=== PATIENT | female | born 1965 | race Caucasian/White ===

== ENCOUNTER → 2017-12-08 07:58 | Outpatient (CLI) | payer OTHER, SELFPAY ==
[2017-12-08 09:20] LABS: Hematocrit 31.9 % (36-46); Hemoglobin 9.9 g/dL (12.0-16.0); Mean Corpuscular HGB Conc 31.1 % (30-36); Mean Corpuscular Hemoglobin 23.9 PG (26-34); Mean Corpuscular Volume 76.9 fL (80-100); Platelet Count 152 X10^3/uL (150-400); Red Blood Cell Count 4.15 X10^6/uL (4.0-5.2); Red Cell Distribution Width 20.5 % (11.6-14.8); White Blood Cell Count 4.6 X10^3/uL (4.5-11.0)
[2017-12-08 09:28] LABS: INR 2.5 (0.9-1.3); Prothrombin Time 26.6 SECONDS (10.1-12.7)
[2017-12-08 09:29] LABS: Add Manual Diff / Slide Review YES
[2017-12-08 09:46] LABS: Anisocytosis 1+; Hypochromasia 3+; Poikilocytosis 1+; Target Cells 2+
== END ==
PROVIDERS: PCP Family Medicine; Visit Provider Pathology Hematology
DX: D45 Polycythemia vera (principal)
CPT/HCPCS: 36415; 85025; 85610

== ENCOUNTER → 2017-12-30 08:52 | Outpatient (CLI) | payer OTHER, SELFPAY ==
[2017-12-30 10:24] LABS: INR 2.7 (0.9-1.3); Prothrombin Time 28.7 SECONDS (10.1-12.7)
[2017-12-30 10:28] LABS: Hematocrit 33.1 % (36-46); Hemoglobin 10.3 g/dL (12.0-16.0); Mean Corpuscular HGB Conc 31.1 % (30-36); Mean Corpuscular Hemoglobin 24.3 PG (26-34); Platelet Count 218 X10^3/uL (150-400); Red Blood Cell Count 4.25 X10^6/uL (4.0-5.2); Red Cell Distribution Width 20.7 % (11.6-14.8); White Blood Cell Count 4.9 X10^3/uL (4.5-11.0)
[2017-12-30 10:30] LABS: Add Manual Diff / Slide Review YES
[2017-12-30 10:31] LABS: HEMOLYSIS < 15 (0-50)
[2017-12-30 10:33] LABS: Alanine Aminotransferase 102 IU/L (9-52); Albumin 4.2 g/dL (3.5-5.0); Albumin Globulin Ratio 1.8 (1.0-2.8); Alkaline Phosphatase 166 U/L (38-126); Aspartate Aminotransferase 82 IU/L (14-36); Bilirubin Unconjugated 0.8 mg/dL (0.0-1.1); Globulin 2.4 g/dL (1.7-4.1); HEMOLYSIS < 15 (0-50); Total Protein 6.6 g/dL (6.3-8.2)
[2017-12-30 10:43] LABS: Total Iron Binding Capacity 427 ug/dL (265-497); Transferrin 333 mg/dL (206-381)
[2017-12-30 10:45] LABS: Iron < 10 ug/dL (37-170); Percent Iron Saturation 2 % (15-50)
[2017-12-30 11:07] LABS: Ferritin 4.8 ng/mL (11.1-264)
[2017-12-30 11:46] LABS: Hypochromasia 2+; Neutrophils Absolute Manual 2793 /uL (3000-5900); Total Cells Counted 100
[2017-12-30 11:47] LABS: Acanthocytes 2+
[2017-12-30 11:48] LABS: Target Cells 3+
== END ==
PROVIDERS: PCP Family Medicine; Visit Provider Internal Medicine Gastroenterology
DX: Z79.01 Long term (current) use of anticoagulants (principal); D45 Polycythemia vera; K76.6 Portal hypertension; I81 Portal vein thrombosis; Z90.81 Acquired absence of spleen
CPT/HCPCS: 36415; 80076; 82728; 83540; 83550; 85025; 85610

== ENCOUNTER → 2018-02-09 07:40 | Outpatient (CLI) | payer OTHER, SELFPAY ==
[2018-02-09 08:32] LABS: HEMOLYSIS < 15 (0-50); Iron 20 ug/dL (37-170)
[2018-02-09 08:33] LABS: Alanine Aminotransferase 94 IU/L (9-52); Albumin 4.2 g/dL (3.5-5.0); Albumin Globulin Ratio 2.1 (1.0-2.8); Alkaline Phosphatase 148 U/L (38-126); Aspartate Aminotransferase 66 IU/L (14-36); Bilirubin Total 0.9 mg/dL (0.2-1.3); Bilirubin Unconjugated 0.8 mg/dL (0.0-1.1); HEMOLYSIS < 15 (0-50); Lactate Dehydrogenase 606 U/L (313-618); Total Protein 6.2 g/dL (6.3-8.2); Uric Acid 2.8 mg/dL (2.5-6.2)
[2018-02-09 08:38] LABS: Hematocrit 33.4 % (36-46); Hemoglobin 10.4 g/dL (12.0-16.0); Mean Corpuscular HGB Conc 31.3 % (30-36); Mean Corpuscular Hemoglobin 24.4 PG (26-34); Mean Corpuscular Volume 77.9 fL (80-100); Platelet Count 340 X10^3/uL (150-400); Red Blood Cell Count 4.29 X10^6/uL (4.0-5.2); Red Cell Distribution Width 19.2 % (11.6-14.8); White Blood Cell Count 4.8 X10^3/uL (4.5-11.0)
[2018-02-09 08:45] LABS: Percent Iron Saturation 5 % (15-50); Total Iron Binding Capacity 396 ug/dL (265-497); Transferrin 318 mg/dL (206-381)
[2018-02-09 08:59] LABS: Add Manual Diff / Slide Review YES
[2018-02-09 09:08] LABS: Ferritin 5.2 ng/mL (11.1-264)
[2018-02-09 11:28] LABS: Neutrophils Absolute Manual 3360 /uL (3000-5900); Total Cells Counted 100
[2018-02-09 11:30] LABS: Hypochromasia 3+; Target Cells 2+
[2018-02-09 11:35] LABS: Anisocytosis 2+
[2018-02-09 11:37] LABS: Poikilocytosis 2+
[2018-02-09 11:47] LABS: INR 2.7 (0.9-1.3); Prothrombin Time 30.2 SECONDS (10.1-12.7)
== END ==
PROVIDERS: PCP Family Medicine; Visit Provider Pathology Hematology
DX: D45 Polycythemia vera (principal); Z79.01 Long term (current) use of anticoagulants
CPT/HCPCS: 36415; 80076; 82728; 83540; 83550; 83615; 84550; 85025; 85610

== ENCOUNTER → 2018-03-08 14:54 | Outpatient (CLI) | payer OTHER, SELFPAY ==
[2018-03-08 15:24] LABS: Add Manual Diff / Slide Review NO; Basophils Percent Auto 0.9 % (0-2); Eosinophils Percent Auto 7.8 % (2-4); Hematocrit 35.4 % (36-46); Hemoglobin 11.2 g/dL (12.0-16.0); Lymphocytes Percent Auto 11.3 % (25-40); Mean Corpuscular HGB Conc 31.6 % (30-36); Mean Corpuscular Hemoglobin 24.3 PG (26-34); Mean Corpuscular Volume 76.9 fL (80-100); Monocytes Percent Auto 8.5 % (3-14); Neutrophils Absolute Auto 5300 /uL (3000-5900); Neutrophils Percent Auto 71.5 % (50-75); Platelet Count 302 X10^3/uL (150-400); Red Cell Distribution Width 19.3 % (11.6-14.8); White Blood Cell Count 7.4 X10^3/uL (4.5-11.0)
[2018-03-08 15:25] LABS: INR 2.5 (0.9-1.3)
== END ==
PROVIDERS: PCP Family Medicine; Visit Provider Pharmacist Pharmacotherapy
DX: Z79.01 Long term (current) use of anticoagulants (principal)
CPT/HCPCS: 36415; 85025; 85610

== ENCOUNTER → 2018-04-18 13:52 | Outpatient (CLI) | payer OTHER, SELFPAY ==
[2018-04-18 14:29] LABS: Hematocrit 35.1 % (36-46); Hemoglobin 11.4 g/dL (12.0-16.0); Mean Corpuscular HGB Conc 32.3 % (30-36); Mean Corpuscular Hemoglobin 25.2 PG (26-34); Mean Corpuscular Volume 77.9 fL (80-100); Platelet Count 551 X10^3/uL (150-400); Red Blood Cell Count 4.51 X10^6/uL (4.0-5.2); Red Cell Distribution Width 20.5 % (11.6-14.8); White Blood Cell Count 7.7 X10^3/uL (4.5-11.0)
[2018-04-18 14:51] LABS: INR 2.5 (0.9-1.3); Prothrombin Time 27.2 SECONDS (10.1-12.7)
[2018-04-18 15:04] LABS: Estimated Glomerular Filt Rate > 60.0 mL/min (>60)
[2018-04-18 16:41] LABS: Hypochromasia 2+; Target Cells 2+
[2018-04-18 16:42] LABS: Anisocytosis 2+; Poikilocytosis 1+
== END ==
PROVIDERS: PCP Family Medicine; Visit Provider Pharmacist Pharmacotherapy
DX: Z79.01 Long term (current) use of anticoagulants (principal)
CPT/HCPCS: 36415; 82565; 85027; 85610

== ENCOUNTER → 2018-05-04 15:23 | Outpatient (CLI) | payer OTHER, SELFPAY ==
[2018-05-04 17:09] LABS: Prothrombin Time 33.2 SECONDS (10.1-12.7)
[2018-05-04 17:20] LABS: Alanine Aminotransferase 77 IU/L (9-52); Albumin 4.4 g/dL (3.5-5.0); Alkaline Phosphatase 148 U/L (38-126); Aspartate Aminotransferase 60 IU/L (14-36); Bilirubin Total 0.9 mg/dL (0.2-1.3); Blood Urea Nitrogen 14 mg/dL (7-17); Calcium 9.3 mg/dL (8.4-10.2); Carbon Dioxide 29 mmol/L (22-32); Chloride 103 mmol/L (98-107); Estimated Glomerular Filt Rate > 60.0 mL/min (>60); Globulin 2.2 g/dL (1.7-4.1); Glucose 83 mg/dL (70-100); HEMOLYSIS < 15 (0-50); Potassium 4.3 mmol/L (3.4-5.1); Sodium 143 mmol/L (137-145); Total Protein 6.6 g/dL (6.3-8.2)
[2018-05-04 17:51] LABS: Hematocrit 36.3 % (36-46); Hemoglobin 11.1 g/dL (12.0-16.0); Mean Corpuscular HGB Conc 30.6 % (30-36); Mean Corpuscular Hemoglobin 23.9 PG (26-34); Mean Corpuscular Volume 78.1 fL (80-100); Platelet Count 303 X10^3/uL (150-400); Red Blood Cell Count 4.65 X10^6/uL (4.0-5.2); Red Cell Distribution Width 20.3 % (11.6-14.8); White Blood Cell Count 6.7 X10^3/uL (4.5-11.0)
[2018-05-04 17:52] LABS: Add Manual Diff / Slide Review YES
[2018-05-04 18:21] LABS: Neutrophils Absolute Manual 4824 /uL (3000-5900); Total Cells Counted 100
[2018-05-04 18:22] LABS: Platelet Morphology Comment NOTE; RBC Morphology See; Schistocytes 1+; Target Cells 2+
[2018-05-04 18:23] LABS: Spherocytes 1+
== END ==
PROVIDERS: PCP Family Medicine; Visit Provider Internal Medicine Gastroenterology
DX: R79.89 Other specified abnormal findings of blood chemistry (principal); I81 Portal vein thrombosis; Z90.81 Acquired absence of spleen; D45 Polycythemia vera
CPT/HCPCS: 36415; 80053; 85025; 85610

== ENCOUNTER → 2018-06-07 12:30 | Outpatient (CLI) | payer OTHER, SELFPAY ==
--- NOTE | 2018-06-07 12:33 | DI.MG.S_ITS ---
BILATERAL DIGITAL SCREENING MAMMOGRAM 3D/2D WITH CAD: 06/07/2018 CLINICAL: Routine screening. Family history of breast cancer. Comparison is made to exams dated: 11/20/2015 mammogram, 07/13/2013 mammogram, and 05/12/2012 mammogram - [facility]. The tissue of both breasts is heterogeneously dense. This may lower the sensitivity of mammography. Current study was also evaluated with a Computer Aided Detection (CAD) system. No significant masses, calcifications, or other findings are seen in either breast. There has been no significant interval change. IMPRESSION: NEGATIVE There is no mammographic evidence of malignancy. A 1 year screening mammogram is recommended. This exam was interpreted at Station ID: [id number]. NOTE: For mammograms, a report in lay terms will be sent to the patient. Approximately 15% of breast malignancies will not be visualized mammographically. In the management of a palpable breast mass, a negative mammogram must not discourage biopsy of a clinically suspicious lesion. Electronically Signed By: Peterson martinez/sharmila:06/07/2018 14:44:20 copy to: Melanie Rao copy to: Melo Hall letter sent: Normal Exam ACR BI-RADS Category 1: Negative 3341F
[2018-06-07 13:18] LABS: Add Manual Diff / Slide Review NO; Basophils Percent Auto 3.1 % (0-2); Eosinophils Percent Auto 4.2 % (2-4); Hematocrit 37.1 % (36-46); Hemoglobin 11.6 g/dL (12.0-16.0); Lymphocytes Percent Auto 21.4 % (25-40); Mean Corpuscular HGB Conc 31.3 % (30-36); Mean Corpuscular Hemoglobin 24.8 PG (26-34); Mean Corpuscular Volume 79.2 fL (80-100); Monocytes Percent Auto 6.6 % (3-14); Neutrophils Absolute Auto 4500 /uL (3000-5900); Neutrophils Percent Auto 64.7 % (50-75); Red Blood Cell Count 4.68 X10^6/uL (4.0-5.2); Red Cell Distribution Width 20.1 % (11.6-14.8)
[2018-06-07 13:38] LABS: Platelet Count 500 X10^3/uL (150-400)
[2018-06-07 13:39] LABS: Anisocytosis 2+; Poikilocytosis 2+
[2018-06-07 13:40] LABS: Target Cells 1+
[2018-06-07 14:00] LABS: INR 3.7 (0.9-1.3); Prothrombin Time 40.8 SECONDS (10.1-12.7)
[2018-06-07 14:09] LABS: Alanine Aminotransferase 90 IU/L (9-52); Albumin 4.6 g/dL (3.5-5.0); Albumin Globulin Ratio 1.8 (1.0-2.8); Alkaline Phosphatase 133 U/L (38-126); Aspartate Aminotransferase 69 IU/L (14-36); Bilirubin Total 0.9 mg/dL (0.2-1.3); Blood Urea Nitrogen 14 mg/dL (7-17); Calcium 9.3 mg/dL (8.4-10.2); Carbon Dioxide 30 mmol/L (22-32); Chloride 104 mmol/L (98-107); Estimated Glomerular Filt Rate > 60.0 mL/min (>60); Globulin 2.6 g/dL (1.7-4.1); Glucose 91 mg/dL (70-100); HEMOLYSIS < 15 (0-50); Potassium 3.9 mmol/L (3.4-5.1); Sodium 146 mmol/L (137-145); Total Protein 7.2 g/dL (6.3-8.2)
== END ==
PROVIDERS: PCP Family Medicine; Visit Provider Family Medicine
DX: Z12.31 Encounter for screening mammogram for malignant neoplasm of breast (principal); Z80.3 Family history of malignant neoplasm of breast; D45 Polycythemia vera; Z79.01 Long term (current) use of anticoagulants
CPT/HCPCS: 36415; 77063; 77067; 80053; 85025; 85610

== ENCOUNTER → 2018-06-21 06:58 | Outpatient (CLI) | payer OTHER, SELFPAY ==
[2018-06-21 09:29] LABS: Hematocrit 38.2 % (36-46); Hemoglobin 11.9 g/dL (12.0-16.0); Mean Corpuscular HGB Conc 31.2 % (30-36); Mean Corpuscular Hemoglobin 25.1 PG (26-34); Mean Corpuscular Volume 80.5 fL (80-100); Platelet Count 427 X10^3/uL (150-400); Red Blood Cell Count 4.75 X10^6/uL (4.0-5.2); White Blood Cell Count 5.7 X10^3/uL (4.5-11.0)
[2018-06-21 09:30] LABS: Add Manual Diff / Slide Review YES
[2018-06-21 09:45] LABS: INR 2.4 (0.9-1.3); Prothrombin Time 28.3 SECONDS (10.1-12.7)
[2018-06-21 10:04] LABS: Alanine Aminotransferase 86 IU/L (9-52); Albumin 4.5 g/dL (3.5-5.0); Albumin Globulin Ratio 1.7 (1.0-2.8); Alkaline Phosphatase 144 U/L (38-126); Aspartate Aminotransferase 78 IU/L (14-36); Bilirubin Total 1.2 mg/dL (0.2-1.3); Bilirubin Unconjugated 0.9 mg/dL (0.0-1.1); Blood Urea Nitrogen 13 mg/dL (7-17); Calcium 9.4 mg/dL (8.4-10.2); Carbon Dioxide 27 mmol/L (22-32); Chloride 105 mmol/L (98-107); Cholesterol 150 mg/dL (140-199); Estimated Glomerular Filt Rate > 60.0 mL/min (>60); Globulin 2.6 g/dL (1.7-4.1); Glucose 73 mg/dL (70-100); HDL Cholesterol 93 mg/dL (40-60); HEMOLYSIS < 15 (0-50); LDL Cholesterol Calculated 50 mg/dL (<100); Potassium 4.4 mmol/L (3.4-5.1); Sodium 145 mmol/L (137-145); Total Protein 7.1 g/dL (6.3-8.2); Triglycerides 33 mg/dL (35-150)
[2018-06-21 10:28] LABS: TSH w/ Reflex to FT4 2.21 uIU/mL (0.47-4.68)
[2018-06-21 10:49] LABS: Neutrophils Absolute Manual 3591 /uL (3000-5900); Total Cells Counted 100
[2018-06-21 10:51] LABS: Anisocytosis 3+; Hypochromasia 2+; Target Cells 1+
[2018-06-21 10:52] LABS: Poikilocytosis 1+
== END ==
PROVIDERS: Family Provider Family Medicine; PCP Family Medicine; Visit Provider Internal Medicine Gastroenterology
DX: K76.6 Portal hypertension (principal); I81 Portal vein thrombosis; Z90.81 Acquired absence of spleen; D45 Polycythemia vera; Z00.00 Encounter for general adult medical examination without abnormal findings; R14.0 Abdominal distension (gaseous); M22.2X9 Patellofemoral disorders, unspecified knee
CPT/HCPCS: 36415; 80053; 80061; 80076; 84443; 85025; 85610

== ENCOUNTER → 2018-07-20 14:53 | Outpatient (CLI) | payer OTHER, SELFPAY ==
[2018-07-20 15:38] LABS: Hematocrit 37.4 % (36-46); Hemoglobin 11.8 g/dL (12.0-16.0); Mean Corpuscular HGB Conc 31.5 % (30-36); Mean Corpuscular Hemoglobin 25.4 PG (26-34); Mean Corpuscular Volume 80.7 fL (80-100); Platelet Count 286 X10^3/uL (150-400); Red Blood Cell Count 4.63 X10^6/uL (4.0-5.2)
[2018-07-20 15:40] LABS: Add Manual Diff / Slide Review YES
[2018-07-20 15:54] LABS: Neutrophils Absolute Manual 4970 /uL (3000-5900); Total Cells Counted 100
[2018-07-20 15:55] LABS: Basophilic Stippling 1+; Burr Cells 2+; Rouleaux 1+; Target Cells 1+
[2018-07-20 15:56] LABS: Anisocytosis 2+; Hypochromasia 2+; Poikilocytosis 2+
== END ==
PROVIDERS: PCP Family Medicine; Visit Provider Pathology Hematology
DX: D45 Polycythemia vera (principal)
CPT/HCPCS: 36415; 85025

== ENCOUNTER → 2018-07-26 08:55 | Outpatient (CLI) | payer OTHER, SELFPAY ==
[2018-07-26 10:07] LABS: INR 3.3 (0.9-1.3); Prothrombin Time 38.9 SECONDS (10.1-12.7)
== END ==
PROVIDERS: PCP Family Medicine; Visit Provider Pharmacist Pharmacotherapy
DX: Z79.01 Long term (current) use of anticoagulants (principal)
CPT/HCPCS: 36415; 85610

== ENCOUNTER → 2018-08-22 15:16 | Outpatient (CLI) | payer OTHER, SELFPAY ==
[2018-08-22 16:01] LABS: Add Manual Diff / Slide Review NO; Basophils Absolute Auto 100 /uL (0-100); Basophils Percent Auto 2.2 % (0-2); Eosinophils Absolute Auto 200 /uL (0-450); Eosinophils Percent Auto 3.7 % (2-4); Hematocrit 38.6 % (36-46); Hemoglobin 12.3 g/dL (12.0-16.0); INR 4.4 (0.9-1.3); Lymphocytes Absolute Auto 1100 /uL (1100-4500); Lymphocytes Percent Auto 19.3 % (25-40); Mean Corpuscular HGB Conc 31.8 % (30-36); Mean Corpuscular Hemoglobin 26.3 PG (26-34); Mean Corpuscular Volume 82.7 fL (80-100); Monocytes Absolute Auto 500 /uL (0-900); Monocytes Percent Auto 9.3 % (3-14); Neutrophils Absolute Auto 3800 /uL (1500-7000); Neutrophils Percent Auto 65.5 % (50-75); Platelet Count 514 X10^3/uL (150-400); Red Blood Cell Count 4.67 X10^6/uL (4.0-5.2); Red Cell Distribution Width 21.6 % (11.6-14.8); White Blood Cell Count 5.8 X10^3/uL (4.5-11.0)
[2018-08-22 16:48] LABS: Anisocytosis 2+; Hypochromasia 1+; Poikilocytosis 2+; Target Cells 2+
[2018-08-22 16:49] LABS: Platelet Estimate Increased on smear
== END ==
PROVIDERS: PCP Family Medicine; Visit Provider Pharmacist Pharmacotherapy
DX: Z79.01 Long term (current) use of anticoagulants (principal)
CPT/HCPCS: 36415; 85025; 85610

== ENCOUNTER → 2018-09-01 14:22 | Outpatient (CLI) | payer OTHER, SELFPAY ==
--- NOTE | 2018-09-01 14:30 | DI.RAD.S_ITS ---
PROCEDURE: XR FINGER LT MIN 2V INDICATIONS: LEFT 5TH FINGER PAIN TECHNIQUE: AP hand, 2 views of the left finger(s) acquired. COMPARISON: None. FINDINGS: Bones: No fractures or dislocations. No suspicious bony lesions. First CMC and triscaphe joint degeneration. Left little finger DIP joint joint space narrowing Soft tissues: No suspicious soft tissue calcifications. IMPRESSION: No fractures. Diffuse left hand osteoarthritis including at the left little finger DIP joint Dictated by: Regino Coates M.D. on 09/01/2018 at 15:08 Approved by: Regino Coates M.D. on 09/01/2018 at 15:10
[2018-09-01 14:54] LABS: Prothrombin Time 34.8 SECONDS (10.1-12.7)
== END ==
PROVIDERS: PCP Family Medicine; Visit Provider Pharmacist Pharmacotherapy
DX: M79.645 Pain in left finger(s) (principal); Z79.01 Long term (current) use of anticoagulants
CPT/HCPCS: 36415; 73140; 85610

== ENCOUNTER → 2018-09-28 08:13 | Outpatient (CLI) | payer OTHER, SELFPAY ==
[2018-09-28 08:50] LABS: Add Manual Diff / Slide Review NO; Basophils Absolute Auto 100 /uL (0-100); Basophils Percent Auto 2.7 % (0-2); Eosinophils Absolute Auto 200 /uL (0-450); Eosinophils Percent Auto 4.7 % (2-4); Hemoglobin 12.9 g/dL (12.0-16.0); Lymphocytes Absolute Auto 800 /uL (1100-4500); Lymphocytes Percent Auto 21.2 % (25-40); Mean Corpuscular HGB Conc 32.4 % (30-36); Mean Corpuscular Hemoglobin 27.9 PG (26-34); Mean Corpuscular Volume 86.1 fL (80-100); Monocytes Absolute Auto 300 /uL (0-900); Monocytes Percent Auto 8.2 % (3-14); Neutrophils Absolute Auto 2500 /uL (1500-7000); Neutrophils Percent Auto 63.2 % (50-75); Platelet Count 299 X10^3/uL (150-400); Red Blood Cell Count 4.64 X10^6/uL (4.0-5.2); Red Cell Distribution Width 23.3 % (11.6-14.8)
[2018-09-28 08:53] LABS: INR 3.1 (0.9-1.3); Prothrombin Time 36.7 SECONDS (10.1-12.7)
[2018-09-28 09:21] LABS: Poikilocytosis 1+
[2018-09-28 09:22] LABS: Anisocytosis 2+; Target Cells 2+
[2018-09-28 09:28] LABS: Alanine Aminotransferase 81 IU/L (9-52); Albumin 4.4 g/dL (3.5-5.0); Albumin Globulin Ratio 1.8 (1.0-2.8); Alkaline Phosphatase 143 U/L (38-126); Aspartate Aminotransferase 60 IU/L (14-36); Blood Urea Nitrogen 12 mg/dL (7-17); Calcium 9.4 mg/dL (8.4-10.2); Carbon Dioxide 25 mmol/L (22-32); Chloride 104 mmol/L (98-107); Estimated Glomerular Filt Rate > 60.0 mL/min (>60); Globulin 2.4 g/dL (1.7-4.1); Glucose 107 mg/dL (70-100); HEMOLYSIS < 15 (0-50); Potassium 4.1 mmol/L (3.4-5.1); Sodium 140 mmol/L (137-145); Total Protein 6.8 g/dL (6.3-8.2)
== END ==
PROVIDERS: Family Provider Family Medicine; PCP Family Medicine; Visit Provider Pathology Hematology
DX: D45 Polycythemia vera (principal); Z79.01 Long term (current) use of anticoagulants
CPT/HCPCS: 36415; 80053; 85025; 85610

== ENCOUNTER → 2018-11-01 11:31 | Outpatient (CLI) | payer OTHER, SELFPAY ==
[2018-11-01 12:34] LABS: INR 1.8 (0.9-1.3); Prothrombin Time 21.6 SECONDS (10.1-12.7)
== END ==
PROVIDERS: Family Provider Family Medicine; PCP Family Medicine; Visit Provider Pharmacist
DX: Z79.01 Long term (current) use of anticoagulants (principal)
CPT/HCPCS: 36415; 85610

== ENCOUNTER → 2018-11-17 08:14 | Outpatient (CLI) | payer OTHER, SELFPAY ==
[2018-11-17 17:13] LABS: INR 2.2 (0.9-1.3); Prothrombin Time 26.2 SECONDS (10.1-12.7)
== END ==
PROVIDERS: Family Provider Family Medicine; PCP Family Medicine; Visit Provider Pharmacist
DX: Z79.01 Long term (current) use of anticoagulants (principal)
CPT/HCPCS: 36415; 85610

== ENCOUNTER → 2018-12-19 07:57 | Outpatient (CLI) | payer OTHER, SELFPAY ==
[2018-12-19 09:00] LABS: INR 2.8 (0.9-1.3); Prothrombin Time 32.6 SECONDS (10.1-12.7)
[2018-12-19 09:02] LABS: Basophils Absolute Auto 100 /uL (0-100); Basophils Percent Auto 1.7 % (0-2); Eosinophils Absolute Auto 100 /uL (0-450); Hematocrit 41.6 % (36-46); Hemoglobin 13.5 g/dL (12.0-16.0); Lymphocytes Absolute Auto 1000 /uL (1100-4500); Lymphocytes Percent Auto 22.3 % (25-40); Mean Corpuscular HGB Conc 32.4 % (30-36); Mean Corpuscular Hemoglobin 30.5 PG (26-34); Monocytes Absolute Auto 200 /uL (0-900); Monocytes Percent Auto 4.8 % (3-14); Neutrophils Absolute Auto 3100 /uL (1500-7000); Neutrophils Percent Auto 68.2 % (50-75); Platelet Count 503 X10^3/uL (150-400); Red Blood Cell Count 4.43 X10^6/uL (4.0-5.2); Red Cell Distribution Width 18.3 % (11.6-14.8); White Blood Cell Count 4.5 X10^3/uL (4.5-11.0)
[2018-12-19 09:03] LABS: Add Manual Diff / Slide Review SLIDE REVIEW
[2018-12-19 09:08] LABS: Alanine Aminotransferase 62 IU/L (9-52); Albumin 4.4 g/dL (3.5-5.0); Albumin Globulin Ratio 1.7 (1.0-2.8); Alkaline Phosphatase 149 U/L (38-126); Aspartate Aminotransferase 64 IU/L (14-36); Blood Urea Nitrogen 12 mg/dL (7-17); Calcium 9.6 mg/dL (8.4-10.2); Carbon Dioxide 29 mmol/L (22-32); Chloride 102 mmol/L (98-107); Estimated Glomerular Filt Rate > 60.0 mL/min (>60); Globulin 2.6 g/dL (1.7-4.1); Glucose 122 mg/dL (70-100); HEMOLYSIS < 15 (0-50); Potassium 3.9 mmol/L (3.4-5.1); Sodium 140 mmol/L (137-145)
[2018-12-19 09:36] LABS: Platelet Estimate Increased on smear
[2018-12-19 09:37] LABS: RBC Morphology Normal Morphology
== END ==
PROVIDERS: Family Provider Pathology Hematology; PCP Family Medicine; Visit Provider Pharmacist
DX: D45 Polycythemia vera (principal); Z79.01 Long term (current) use of anticoagulants
CPT/HCPCS: 36415; 80053; 85025; 85610

== ENCOUNTER → 2019-01-23 10:37 | Outpatient (CLI) | payer OTHER, SELFPAY ==
[2019-01-23 11:32] LABS: INR 3.7 (0.9-1.3); Prothrombin Time 43.1 SECONDS (10.1-12.7)
== END ==
PROVIDERS: Family Provider Pathology Hematology; PCP Family Medicine; Visit Provider Pharmacist
DX: Z79.01 Long term (current) use of anticoagulants (principal)
CPT/HCPCS: 36415; 85610

== ENCOUNTER → 2019-02-08 08:08 | Outpatient (CLI) | payer OTHER, SELFPAY ==
[2019-02-08 08:48] LABS: Prothrombin Time 35.1 SECONDS (10.1-12.7)
== END ==
PROVIDERS: PCP Family Medicine; Visit Provider Pharmacist
DX: Z79.01 Long term (current) use of anticoagulants (principal)
CPT/HCPCS: 36415; 85610

== ENCOUNTER → 2019-03-30 07:55 | Outpatient (CLI) | payer OTHER, SELFPAY ==
[2019-03-30 08:40] LABS: INR 2.8 (0.9-1.3); Prothrombin Time 33.2 SECONDS (10.1-12.7)
== END ==
PROVIDERS: PCP Family Medicine; Visit Provider Internal Medicine Geriatric Medicine
DX: D45 Polycythemia vera (principal); Z79.01 Long term (current) use of anticoagulants
CPT/HCPCS: 36415; 85610

== ENCOUNTER → 2019-04-26 13:57 | Outpatient (CLI) | payer OTHER, SELFPAY ==
[2019-04-26 14:21] LABS: Add Manual Diff / Slide Review NO; Basophils Absolute Auto 0 /uL (0-100); Basophils Percent Auto 0.6 % (0-2); Eosinophils Absolute Auto 200 /uL (0-450); Eosinophils Percent Auto 2.8 % (2-4); Hematocrit 40.7 % (36-46); Hemoglobin 13.6 g/dL (12.0-16.0); Lymphocytes Absolute Auto 1500 /uL (1100-4500); Lymphocytes Percent Auto 24.5 % (25-40); Mean Corpuscular HGB Conc 33.5 % (30-36); Mean Corpuscular Hemoglobin 33.6 PG (26-34); Mean Corpuscular Volume 100.4 fL (80-100); Monocytes Absolute Auto 300 /uL (0-900); Monocytes Percent Auto 5.1 % (3-14); Neutrophils Absolute Auto 4100 /uL (1500-7000); Platelet Count 432 X10^3/uL (150-400); Red Blood Cell Count 4.05 X10^6/uL (4.0-5.2); Red Cell Distribution Width 17.7 % (11.6-14.8); White Blood Cell Count 6.1 X10^3/uL (4.5-11.0)
[2019-04-26 14:27] LABS: INR 2.8 (0.9-1.3); Prothrombin Time 33.1 SECONDS (10.1-12.7)
[2019-04-26 17:03] LABS: Alanine Aminotransferase 95 IU/L (9-52); Albumin 4.2 g/dL (3.5-5.0); Albumin Globulin Ratio 1.8 (1.0-2.8); Alkaline Phosphatase 193 U/L (38-126); Aspartate Aminotransferase 89 IU/L (14-36); Bilirubin Unconjugated 0.8 mg/dL (0.0-1.1); Globulin 2.4 g/dL (1.7-4.1); HEMOLYSIS < 15 (0-50); Total Protein 6.6 g/dL (6.3-8.2)
== END ==
PROVIDERS: PCP Family Medicine; Visit Provider Pharmacist Pharmacist Clinician (PhC)/ Clinical Pharmacy Specialist
DX: D45 Polycythemia vera (principal); Z79.01 Long term (current) use of anticoagulants
CPT/HCPCS: 36415; 80076; 85025; 85610

== ENCOUNTER → 2019-05-29 14:57 | Outpatient (CLI) | payer OTHER, SELFPAY ==
[2019-05-29 15:51] LABS: INR 3.1 (0.9-1.3); Prothrombin Time 36.2 SECONDS (10.1-12.7)
== END ==
PROVIDERS: PCP Family Medicine; Visit Provider Pharmacist Pharmacist Clinician (PhC)/ Clinical Pharmacy Specialist
DX: Z79.01 Long term (current) use of anticoagulants (principal)
CPT/HCPCS: 36415; 85610

== ENCOUNTER → 2019-06-20 13:11 | Outpatient (CLI) | payer OTHER, SELFPAY ==
[2019-06-20 13:48] LABS: Add Manual Diff / Slide Review NO; Basophils Absolute Auto 100 /uL (0-100); Basophils Percent Auto 1.4 % (0-2); Eosinophils Absolute Auto 200 /uL (0-450); Hemoglobin 14.6 g/dL (12.0-16.0); Lymphocytes Absolute Auto 1400 /uL (1100-4500); Lymphocytes Percent Auto 27.3 % (25-40); Mean Corpuscular HGB Conc 33.3 % (30-36); Mean Corpuscular Hemoglobin 33.9 PG (26-34); Monocytes Absolute Auto 300 /uL (0-900); Monocytes Percent Auto 5.8 % (3-14); Neutrophils Absolute Auto 3200 /uL (1500-7000); Neutrophils Percent Auto 62.5 % (50-75); Platelet Count 494 X10^3/uL (150-400); Red Blood Cell Count 4.32 X10^6/uL (4.0-5.2); Red Cell Distribution Width 16.7 % (11.6-14.8); White Blood Cell Count 5.1 X10^3/uL (4.5-11.0)
[2019-06-20 14:22] LABS: INR 2.8 (0.9-1.3); Prothrombin Time 32.9 SECONDS (10.1-12.7)
[2019-06-20 14:30] LABS: Alanine Aminotransferase 75 IU/L (<35); Albumin 4.4 g/dL (3.5-5.0); Albumin Globulin Ratio 1.9 (1.0-2.8); Alkaline Phosphatase 135 U/L (38-126); Aspartate Aminotransferase 68 IU/L (14-36); Globulin 2.3 g/dL (1.7-4.1); HEMOLYSIS < 15 (0-50); Total Protein 6.7 g/dL (6.3-8.2)
== END ==
PROVIDERS: PCP Family Medicine; Visit Provider Pathology Hematology
DX: Z79.01 Long term (current) use of anticoagulants (principal); D45 Polycythemia vera
CPT/HCPCS: 36415; 80076; 85025; 85610

== ENCOUNTER → 2019-07-17 12:33 | Outpatient (CLI) | payer OTHER, SELFPAY ==
[2019-07-17 13:03] LABS: Add Manual Diff / Slide Review NO; Basophils Absolute Auto 0 /uL (0-100); Basophils Percent Auto 0.6 % (0-2); Eosinophils Absolute Auto 100 /uL (0-450); Eosinophils Percent Auto 1.8 % (2-4); Hematocrit 44.8 % (36-46); Hemoglobin 14.7 g/dL (12.0-16.0); Lymphocytes Absolute Auto 1400 /uL (1100-4500); Lymphocytes Percent Auto 21.9 % (25-40); Mean Corpuscular HGB Conc 32.8 % (30-36); Mean Corpuscular Hemoglobin 33.7 PG (26-34); Mean Corpuscular Volume 102.7 fL (80-100); Monocytes Absolute Auto 400 /uL (0-900); Monocytes Percent Auto 6.4 % (3-14); Neutrophils Absolute Auto 4600 /uL (1500-7000); Neutrophils Percent Auto 69.3 % (50-75); Platelet Count 416 X10^3/uL (150-400); Red Blood Cell Count 4.36 X10^6/uL (4.0-5.2); White Blood Cell Count 6.6 X10^3/uL (4.5-11.0)
[2019-07-17 13:10] LABS: INR 2.1 (0.9-1.3)
[2019-07-17 13:49] LABS: Alanine Aminotransferase 84 IU/L (<35); Albumin 4.7 g/dL (3.5-5.0); Alkaline Phosphatase 180 U/L (38-126); Aspartate Aminotransferase 79 IU/L (14-36); Bilirubin Total 1.4 mg/dL (0.2-1.3); Bilirubin Unconjugated 1.3 mg/dL (0.0-1.1); Globulin 2.4 g/dL (1.7-4.1); HEMOLYSIS < 15 (0-50); Total Protein 7.1 g/dL (6.3-8.2)
== END ==
PROVIDERS: PCP Family Medicine; Visit Provider Pathology Hematology
DX: D45 Polycythemia vera (principal); Z79.01 Long term (current) use of anticoagulants
CPT/HCPCS: 36415; 80076; 85025; 85610

== ENCOUNTER → 2019-09-19 07:24 | Outpatient (CLI) | payer OTHER, SELFPAY ==
[2019-09-19 09:14] LABS: INR 2.5 (0.9-1.3); Prothrombin Time 27.9 SECONDS (10.1-12.7)
== END ==
PROVIDERS: PCP Family Medicine; Referring Provider Pharmacist; Visit Provider Pharmacist
DX: Z79.01 Long term (current) use of anticoagulants (principal)
CPT/HCPCS: 36415; 85610

== ENCOUNTER → 2019-10-19 07:52 | Outpatient (CLI) | payer OTHER, SELFPAY ==
[2019-10-19 08:52] LABS: Basophils Absolute Auto 100 /uL (0-100); Basophils Percent Auto 1.5 % (0-2); Eosinophils Absolute Auto 100 /uL (0-450); Eosinophils Percent Auto 2.4 % (2-4); Hematocrit 43.9 % (36-46); Hemoglobin 14.6 g/dL (12.0-16.0); Lymphocytes Absolute Auto 1300 /uL (1100-4500); Lymphocytes Percent Auto 30.4 % (25-40); Mean Corpuscular HGB Conc 33.2 % (30-36); Mean Corpuscular Hemoglobin 35.4 PG (26-34); Mean Corpuscular Volume 106.6 fL (80-100); Monocytes Absolute Auto 400 /uL (0-900); Monocytes Percent Auto 8.2 % (3-14); Neutrophils Absolute Auto 2500 /uL (1500-7000); Neutrophils Percent Auto 57.5 % (50-75); Platelet Count 586 X10^3/uL (150-400); Red Blood Cell Count 4.12 X10^6/uL (4.0-5.2); Red Cell Distribution Width 17.2 % (11.6-14.8); White Blood Cell Count 4.4 X10^3/uL (4.5-11.0)
[2019-10-19 08:56] LABS: INR 2.2 (0.9-1.3); Prothrombin Time 25.1 SECONDS (10.1-12.7)
[2019-10-19 08:57] LABS: Add Manual Diff / Slide Review SLIDE REVIEW
[2019-10-19 09:12] LABS: Alanine Aminotransferase 82 IU/L (<35); Albumin 4.5 g/dL (3.5-5.0); Albumin Globulin Ratio 1.5 (1.0-2.8); Alkaline Phosphatase 180 U/L (38-126); Aspartate Aminotransferase 83 IU/L (14-36); BUN Creatinine Ratio 26.5 (6-22); Bilirubin Total 1.2 mg/dL (0.2-1.3); Blood Urea Nitrogen 13 mg/dL (7-17); Calcium 9.7 mg/dL (8.4-10.2); Carbon Dioxide 25 mmol/L (22-32); Chloride 106 mmol/L (98-107); Estimated Glomerular Filt Rate > 60.0 mL/min (>60); Glucose 77 mg/dL (70-100); HEMOLYSIS < 15 (0-50); Lactate Dehydrogenase 676 U/L (313-618); Potassium 3.7 mmol/L (3.4-5.1); Sodium 138 mmol/L (137-145); Total Protein 7.5 g/dL (6.3-8.2)
[2019-10-19 09:33] LABS: Anisocytosis 1+; Macrocytosis 1+; Platelet Estimate Increased on smear; Poikilocytosis 1+
== END ==
PROVIDERS: PCP Family Medicine; Referring Provider Pathology Hematology; Visit Provider Pathology Hematology
DX: D45 Polycythemia vera (principal); Z79.01 Long term (current) use of anticoagulants
CPT/HCPCS: 36415; 80053; 83615; 85025; 85610

== ENCOUNTER → 2019-11-01 11:37 | Outpatient (CLI) | payer OTHER, SELFPAY ==
[2019-11-01 13:29] LABS: Add Manual Diff / Slide Review NO; Basophils Absolute Auto 100 /uL (0-100); Basophils Percent Auto 1.2 % (0-2); Eosinophils Absolute Auto 100 /uL (0-450); Eosinophils Percent Auto 2.3 % (2-4); Hematocrit 44.7 % (36-46); Hemoglobin 14.6 g/dL (12.0-16.0); Lymphocytes Absolute Auto 1300 /uL (1100-4500); Lymphocytes Percent Auto 28.4 % (25-40); Mean Corpuscular HGB Conc 32.7 % (30-36); Mean Corpuscular Volume 107.1 fL (80-100); Monocytes Absolute Auto 300 /uL (0-900); Monocytes Percent Auto 7.1 % (3-14); Neutrophils Absolute Auto 2700 /uL (1500-7000); Platelet Count 464 X10^3/uL (150-400); Red Blood Cell Count 4.18 X10^6/uL (4.0-5.2); Red Cell Distribution Width 17.7 % (11.6-14.8); White Blood Cell Count 4.5 X10^3/uL (4.5-11.0)
[2019-11-01 13:45] LABS: Alanine Aminotransferase 97 IU/L (<35); Albumin 4.6 g/dL (3.5-5.0); Albumin Globulin Ratio 1.5 (1.0-2.8); Alkaline Phosphatase 168 U/L (38-126); Aspartate Aminotransferase 97 IU/L (14-36); BUN Creatinine Ratio 26.7 (6-22); Bilirubin Total 0.8 mg/dL (0.2-1.3); Blood Urea Nitrogen 12 mg/dL (7-17); Calcium 9.8 mg/dL (8.4-10.2); Carbon Dioxide 26 mmol/L (22-32); Chloride 106 mmol/L (98-107); Estimated Glomerular Filt Rate > 60.0 mL/min (>60); Glucose 110 mg/dL (70-100); HEMOLYSIS 23 (0-50); Lactate Dehydrogenase 688 U/L (313-618); Potassium 3.9 mmol/L (3.4-5.1); Sodium 140 mmol/L (137-145); Total Protein 7.6 g/dL (6.3-8.2)
== END ==
PROVIDERS: PCP Family Medicine; Referring Provider Pathology Hematology; Visit Provider Pathology Hematology
DX: D45 Polycythemia vera (principal)
CPT/HCPCS: 36415; 80053; 83615; 85025

== ENCOUNTER → 2019-11-23 15:36 | Outpatient (CLI) | payer OTHER, SELFPAY ==
[2019-11-23 16:15] LABS: Prothrombin Time 22.9 SECONDS (10.1-12.7)
== END ==
PROVIDERS: PCP Family Medicine; Referring Provider Pharmacist; Visit Provider Pharmacist
DX: Z79.01 Long term (current) use of anticoagulants (principal)
CPT/HCPCS: 36415; 85610

== ENCOUNTER → 2020-01-07 07:18 | Outpatient (CLI) | payer OTHER, SELFPAY ==
[2020-01-07 08:13] LABS: Add Manual Diff / Slide Review NO; Basophils Absolute Auto 0 /uL (0-100); Basophils Percent Auto 1.2 % (0-2); Eosinophils Absolute Auto 100 /uL (0-450); Eosinophils Percent Auto 2.7 % (2-4); Hematocrit 41.9 % (36-46); Hemoglobin 14.5 g/dL (12.0-16.0); Lymphocytes Absolute Auto 1400 /uL (1100-4500); Lymphocytes Percent Auto 35.1 % (25-40); Mean Corpuscular HGB Conc 34.7 % (30-36); Mean Corpuscular Hemoglobin 38.7 PG (26-34); Mean Corpuscular Volume 111.8 fL (80-100); Monocytes Absolute Auto 300 /uL (0-900); Monocytes Percent Auto 7.7 % (3-14); Neutrophils Absolute Auto 2200 /uL (1500-7000); Neutrophils Percent Auto 53.3 % (50-75); Red Blood Cell Count 3.75 X10^6/uL (4.0-5.2); Red Cell Distribution Width 16.1 % (11.6-14.8); White Blood Cell Count 4.1 X10^3/uL (4.5-11.0)
[2020-01-07 08:21] LABS: Alanine Aminotransferase 81 IU/L (<35); Albumin 4.6 g/dL (3.5-5.0); Albumin Globulin Ratio 1.9 (1.0-2.8); Alkaline Phosphatase 163 U/L (38-126); Aspartate Aminotransferase 84 IU/L (14-36); BUN Creatinine Ratio 29.5 (6-22); Bilirubin Total 1.1 mg/dL (0.2-1.3); Blood Urea Nitrogen 13 mg/dL (7-17); Calcium 10.2 mg/dL (8.4-10.2); Carbon Dioxide 27 mmol/L (22-32); Chloride 106 mmol/L (98-107); Estimated Glomerular Filt Rate > 60.0 mL/min (>60); Globulin 2.4 g/dL (1.7-4.1); Glucose 83 mg/dL (70-100); HEMOLYSIS < 15 (0-50); Lactate Dehydrogenase 783 U/L (313-618); Potassium 4.7 mmol/L (3.4-5.1); Sodium 139 mmol/L (137-145)
[2020-01-07 08:58] LABS: Anisocytosis 1+; Macrocytosis 2+; Platelet Count 606 X10^3/uL (150-400)
[2020-01-07 11:55] LABS: INR 2.4 (0.9-1.3); Prothrombin Time 27.3 SECONDS (10.1-12.7)
== END ==
PROVIDERS: Pathology Hematology; PCP Family Medicine; Referring Provider Pharmacist Pharmacist Clinician (PhC)/ Clinical Pharmacy Specialist; Visit Provider Pharmacist Pharmacist Clinician (PhC)/ Clinical Pharmacy Specialist
DX: Z79.01 Long term (current) use of anticoagulants (principal); D45 Polycythemia vera
CPT/HCPCS: 36415; 80053; 83615; 85025; 85610

== ENCOUNTER → 2020-01-14 07:03 | Outpatient (CLI) | payer OTHER, SELFPAY ==
[2020-01-14 08:01] LABS: Add Manual Diff / Slide Review NO; Basophils Absolute Auto 100 /uL (0-100); Basophils Percent Auto 1.2 % (0-2); Eosinophils Absolute Auto 100 /uL (0-450); Eosinophils Percent Auto 2.8 % (2-4); Hematocrit 40.5 % (36-46); Lymphocytes Absolute Auto 1600 /uL (1100-4500); Lymphocytes Percent Auto 38.3 % (25-40); Mean Corpuscular HGB Conc 34.6 % (30-36); Mean Corpuscular Hemoglobin 38.8 PG (26-34); Mean Corpuscular Volume 112.2 fL (80-100); Monocytes Absolute Auto 200 /uL (0-900); Monocytes Percent Auto 5.8 % (3-14); Neutrophils Absolute Auto 2200 /uL (1500-7000); Neutrophils Percent Auto 51.9 % (50-75); Platelet Count 632 X10^3/uL (150-400); Red Blood Cell Count 3.61 X10^6/uL (4.0-5.2); Red Cell Distribution Width 15.9 % (11.6-14.8); White Blood Cell Count 4.3 X10^3/uL (4.5-11.0)
[2020-01-14 08:14] LABS: Alanine Aminotransferase 84 IU/L (<35); Albumin 4.5 g/dL (3.5-5.0); Albumin Globulin Ratio 1.8 (1.0-2.8); Alkaline Phosphatase 160 U/L (38-126); Aspartate Aminotransferase 92 IU/L (14-36); BUN Creatinine Ratio 28.6 (6-22); Bilirubin Total 0.8 mg/dL (0.2-1.3); Blood Urea Nitrogen 12 mg/dL (7-17); Calcium 9.6 mg/dL (8.4-10.2); Carbon Dioxide 27 mmol/L (22-32); Chloride 105 mmol/L (98-107); Estimated Glomerular Filt Rate > 60.0 mL/min (>60); Globulin 2.5 g/dL (1.7-4.1); Glucose 146 mg/dL (70-100); HEMOLYSIS < 15 (0-50); Lactate Dehydrogenase 741 U/L (313-618); Potassium 3.6 mmol/L (3.4-5.1); Sodium 139 mmol/L (137-145)
[2020-01-14 10:10] LABS: Macrocytosis 2+
== END ==
PROVIDERS: PCP Family Medicine; Referring Provider Pathology Hematology; Visit Provider Pathology Hematology
DX: D45 Polycythemia vera (principal)
CPT/HCPCS: 36415; 80053; 83615; 85025

== ENCOUNTER → 2020-01-21 07:34 | Outpatient (CLI) | payer OTHER, SELFPAY ==
[2020-01-21 09:33] LABS: Basophils Absolute Auto 0 /uL (0-100); Basophils Percent Auto 1.2 % (0-2); Eosinophils Absolute Auto 100 /uL (0-450); Eosinophils Percent Auto 2.3 % (2-4); Hematocrit 42.8 % (36-46); Hemoglobin 14.5 g/dL (12.0-16.0); Lymphocytes Absolute Auto 1300 /uL (1100-4500); Mean Corpuscular HGB Conc 33.8 % (30-36); Mean Corpuscular Hemoglobin 38.4 PG (26-34); Mean Corpuscular Volume 113.8 fL (80-100); Monocytes Absolute Auto 400 /uL (0-900); Monocytes Percent Auto 9.2 % (3-14); Neutrophils Absolute Auto 2100 /uL (1500-7000); Neutrophils Percent Auto 54.3 % (50-75); Platelet Count 501 X10^3/uL (150-400); Red Blood Cell Count 3.76 X10^6/uL (4.0-5.2); Red Cell Distribution Width 15.9 % (11.6-14.8); White Blood Cell Count 3.8 X10^3/uL (4.5-11.0)
[2020-01-21 09:34] LABS: Add Manual Diff / Slide Review SLIDE REVIEW
[2020-01-21 10:11] LABS: Macrocytosis 3+
[2020-01-21 10:12] LABS: Anisocytosis 1+; Poikilocytosis 1+
[2020-01-21 10:46] LABS: Alanine Aminotransferase 81 IU/L (<35); Albumin 4.5 g/dL (3.5-5.0); Alkaline Phosphatase 148 U/L (38-126); Aspartate Aminotransferase 80 IU/L (14-36); BUN Creatinine Ratio 26.7 (6-22); Bilirubin Total 0.9 mg/dL (0.2-1.3); Blood Urea Nitrogen 12 mg/dL (7-17); Carbon Dioxide 28 mmol/L (22-32); Chloride 105 mmol/L (98-107); Estimated Glomerular Filt Rate > 60.0 mL/min (>60); Globulin 2.3 g/dL (1.7-4.1); Glucose 75 mg/dL (70-100); HEMOLYSIS < 15 (0-50); Lactate Dehydrogenase 745 U/L (313-618); Potassium 4.4 mmol/L (3.4-5.1); Sodium 140 mmol/L (137-145); Total Protein 6.8 g/dL (6.3-8.2)
== END ==
PROVIDERS: PCP Family Medicine; Referring Provider Pathology Hematology; Visit Provider Pathology Hematology
DX: D45 Polycythemia vera (principal)
CPT/HCPCS: 36415; 80053; 83615; 85025

== ENCOUNTER → 2020-02-05 07:09 | Outpatient (CLI) | payer OTHER, SELFPAY ==
[2020-02-05 08:31] LABS: Add Manual Diff / Slide Review NO; Basophils Absolute Auto 100 /uL (0-100); Basophils Percent Auto 1.1 % (0-2); Eosinophils Absolute Auto 100 /uL (0-450); Eosinophils Percent Auto 3.4 % (2-4); Hematocrit 42.8 % (36-46); Hemoglobin 14.5 g/dL (12.0-16.0); Lymphocytes Absolute Auto 1600 /uL (1100-4500); Lymphocytes Percent Auto 35.5 % (25-40); Mean Corpuscular HGB Conc 33.8 % (30-36); Mean Corpuscular Hemoglobin 38.6 PG (26-34); Mean Corpuscular Volume 114.2 fL (80-100); Monocytes Absolute Auto 300 /uL (0-900); Monocytes Percent Auto 7.3 % (3-14); Neutrophils Absolute Auto 2300 /uL (1500-7000); Neutrophils Percent Auto 52.7 % (50-75); Platelet Count 462 X10^3/uL (150-400); Red Blood Cell Count 3.74 X10^6/uL (4.0-5.2); White Blood Cell Count 4.4 X10^3/uL (4.5-11.0)
[2020-02-05 08:44] LABS: Alanine Aminotransferase 95 IU/L (<35); Albumin 4.6 g/dL (3.5-5.0); Albumin Globulin Ratio 1.7 (1.0-2.8); Alkaline Phosphatase 157 U/L (38-126); Aspartate Aminotransferase 102 IU/L (14-36); BUN Creatinine Ratio 26.7 (6-22); Bilirubin Total 1.4 mg/dL (0.2-1.3); Blood Urea Nitrogen 12 mg/dL (7-17); Calcium 9.9 mg/dL (8.4-10.2); Carbon Dioxide 26 mmol/L (22-32); Chloride 107 mmol/L (98-107); Estimated Glomerular Filt Rate > 60.0 mL/min (>60); Globulin 2.7 g/dL (1.7-4.1); Glucose 119 mg/dL (70-100); HEMOLYSIS < 15 (0-50); Lactate Dehydrogenase 754 U/L (313-618); Potassium 3.7 mmol/L (3.4-5.1); Sodium 141 mmol/L (137-145); Total Protein 7.3 g/dL (6.3-8.2)
[2020-02-05 08:48] LABS: Macrocytosis 3+
== END ==
PROVIDERS: PCP Family Medicine; Referring Provider Pathology Hematology; Visit Provider Pathology Hematology
DX: D45 Polycythemia vera (principal)
CPT/HCPCS: 36415; 80053; 83615; 85025

== ENCOUNTER → 2020-02-22 07:11 | Outpatient (CLI) | payer OTHER, SELFPAY ==
[2020-02-22 08:27] LABS: Add Manual Diff / Slide Review NO; Basophils Absolute Auto 100 /uL (0-100); Basophils Percent Auto 1.4 % (0-2); Eosinophils Absolute Auto 100 /uL (0-450); Eosinophils Percent Auto 3.4 % (2-4); Hematocrit 42.2 % (36-46); Hemoglobin 14.3 g/dL (12.0-16.0); Lymphocytes Absolute Auto 1200 /uL (1100-4500); Lymphocytes Percent Auto 33.6 % (25-40); Mean Corpuscular Hemoglobin 38.7 PG (26-34); Mean Corpuscular Volume 113.9 fL (80-100); Monocytes Absolute Auto 300 /uL (0-900); Monocytes Percent Auto 7.2 % (3-14); Neutrophils Absolute Auto 1900 /uL (1500-7000); Neutrophils Percent Auto 54.4 % (50-75); Platelet Count 519 X10^3/uL (150-400); Red Cell Distribution Width 14.9 % (11.6-14.8); White Blood Cell Count 3.6 X10^3/uL (4.5-11.0)
[2020-02-22 08:30] LABS: Alanine Aminotransferase 86 IU/L (<35); Albumin 4.5 g/dL (3.5-5.0); Albumin Globulin Ratio 1.7 (1.0-2.8); Alkaline Phosphatase 144 U/L (38-126); Aspartate Aminotransferase 73 IU/L (14-36); BUN Creatinine Ratio 27.7 (6-22); Blood Urea Nitrogen 13 mg/dL (7-17); Calcium 9.9 mg/dL (8.4-10.2); Carbon Dioxide 27 mmol/L (22-32); Chloride 105 mmol/L (98-107); Estimated Glomerular Filt Rate > 60.0 mL/min (>60); Globulin 2.6 g/dL (1.7-4.1); Glucose 98 mg/dL (70-100); HEMOLYSIS < 15 (0-50); Lactate Dehydrogenase 722 U/L (313-618); Potassium 3.7 mmol/L (3.4-5.1); Sodium 139 mmol/L (137-145); Total Protein 7.1 g/dL (6.3-8.2)
[2020-02-22 08:31] LABS: INR 2.6 (0.9-1.3); Prothrombin Time 29.6 SECONDS (10.1-12.7)
[2020-02-22 09:07] LABS: Macrocytosis 2+; Poikilocytosis 1+
== END ==
PROVIDERS: PCP Family Medicine; Referring Provider Pathology Hematology; Visit Provider Pharmacist Pharmacist Clinician (PhC)/ Clinical Pharmacy Specialist
DX: D45 Polycythemia vera (principal); I81 Portal vein thrombosis; R94.5 Abnormal results of liver function studies; Z79.01 Long term (current) use of anticoagulants; Z90.81 Acquired absence of spleen
CPT/HCPCS: 36415; 80053; 83615; 85025; 85610

== ENCOUNTER → 2020-03-14 08:37 | Outpatient (CLI) | payer OTHER, SELFPAY ==
[2020-03-15 10:43] LABS: COVID19 Sendout Not Detected (Not Detect)
== END ==
PROVIDERS: PCP Family Medicine; Visit Provider Physician Assistant
DX: Z11.59 Encounter for screening for other viral diseases (principal)
CPT/HCPCS: 87635

== ENCOUNTER → 2020-03-21 11:49 | Outpatient (CLI) | payer OTHER, SELFPAY ==
--- NOTE | 2020-03-21 11:59 | DI.MG.S_ITS ---
Patient Name: HAYES MCDANIELS date: 1965 Sex: F Attending Physician: Jalen Indications: Date: 03/21/2020 12:11 At the request of: MELANIE RAO Procedure: MM screening mammo BI BILATERAL DIGITAL SCREENING MAMMOGRAM 3D/2D WITH CAD: 03/21/2020 CLINICAL: Routine screening. Family history of breast cancer. Comparison is made to exams dated: 06/07/2018 mammogram, 11/20/2015 mammogram, and 07/13/2013 mammogram - [facility]. The tissue of both breasts is heterogeneously dense. This may lower the sensitivity of mammography. Current study was also evaluated with a Computer Aided Detection (CAD) system. No significant masses, calcifications, or other findings are seen in either breast. There has been no significant interval change. IMPRESSION: NEGATIVE There is no mammographic evidence of malignancy. A 1 year screening mammogram is recommended. This exam was interpreted at Station ID: [id number]. NOTE: For mammograms, a report in lay terms will be sent to the patient. Approximately 15% of breast malignancies will not be visualized mammographically. In the management of a palpable breast mass, a negative mammogram must not discourage biopsy of a clinically suspicious lesion. Electronically Signed By: Garrett Dueñas M.D., jr/sharmila:03/21/2020 12:24:28 copy to: Melanie Rao copy to: Melo Hall letter sent: Normal Exam ACR BI-RADS Category 1: Negative 3341F Continued Report - Page 2 of 2 Patient Name: HAYES MCDANIELS date: 1965 Sex: F Attending Physician: Jalen Indications: Date: 03/21/2020 12:11 At the request of: MELANIE RAO Procedure: MM screening mammo BI
== END ==
PROVIDERS: PCP Family Medicine; Referring Provider Family Medicine; Visit Provider Family Medicine
DX: Z12.31 Encounter for screening mammogram for malignant neoplasm of breast (principal); Z80.3 Family history of malignant neoplasm of breast
CPT/HCPCS: 77063; 77067

== ENCOUNTER → 2020-03-25 07:21 | Outpatient (CLI) | payer OTHER, SELFPAY ==
[2020-03-25 08:45] LABS: INR 2.4 (0.9-1.3); Prothrombin Time 27.1 SECONDS (10.1-12.7)
== END ==
PROVIDERS: Referring Provider Pharmacist Pharmacist Clinician (PhC)/ Clinical Pharmacy Specialist; Visit Provider Pharmacist Pharmacist Clinician (PhC)/ Clinical Pharmacy Specialist
DX: Z79.01 Long term (current) use of anticoagulants (principal)
CPT/HCPCS: 36415; 85610

== ENCOUNTER → 2020-04-08 07:02 | Outpatient (CLI) | payer OTHER, SELFPAY ==
[2020-04-08 09:02] LABS: Add Manual Diff / Slide Review NO; Basophils Absolute Auto 100 /uL (0-100); Basophils Percent Auto 1.4 % (0-2); Eosinophils Absolute Auto 100 /uL (0-450); Eosinophils Percent Auto 2.3 % (2-4); Hematocrit 42.5 % (36-46); Hemoglobin 14.6 g/dL (12.0-16.0); Lymphocytes Absolute Auto 1200 /uL (1100-4500); Mean Corpuscular HGB Conc 34.2 % (30-36); Mean Corpuscular Hemoglobin 39.2 PG (26-34); Mean Corpuscular Volume 114.6 fL (80-100); Monocytes Absolute Auto 300 /uL (0-900); Monocytes Percent Auto 7.1 % (3-14); Neutrophils Absolute Auto 2200 /uL (1500-7000); Neutrophils Percent Auto 58.2 % (50-75); Platelet Count 433 X10^3/uL (150-400); Red Blood Cell Count 3.71 X10^6/uL (4.0-5.2); Red Cell Distribution Width 14.5 % (11.6-14.8); White Blood Cell Count 3.8 X10^3/uL (4.5-11.0)
[2020-04-08 09:13] LABS: INR 1.9 (0.9-1.3); Prothrombin Time 21.8 SECONDS (10.1-12.7)
[2020-04-08 09:17] LABS: Alanine Aminotransferase 88 IU/L (<35); Albumin 4.4 g/dL (3.5-5.0); Albumin Globulin Ratio 1.8 (1.0-2.8); Alkaline Phosphatase 155 U/L (38-126); Aspartate Aminotransferase 73 IU/L (14-36); BUN Creatinine Ratio 25.5 (6-22); Bilirubin Total 1.3 mg/dL (0.2-1.3); Blood Urea Nitrogen 12 mg/dL (7-17); Calcium 9.8 mg/dL (8.4-10.2); Carbon Dioxide 28 mmol/L (22-32); Chloride 104 mmol/L (98-107); Estimated Glomerular Filt Rate > 60.0 mL/min (>60); Globulin 2.5 g/dL (1.7-4.1); Glucose 77 mg/dL (70-100); HEMOLYSIS < 15 (0-50); Lactate Dehydrogenase 734 U/L (313-618); Potassium 4.6 mmol/L (3.4-5.1); Sodium 141 mmol/L (137-145); Total Protein 6.9 g/dL (6.3-8.2)
[2020-04-08 10:10] LABS: Anisocytosis 1+; Macrocytosis 3+
[2020-04-08 10:11] LABS: Poikilocytosis 1+
== END ==
PROVIDERS: PCP Family Medicine; Referring Provider Pharmacist Pharmacist Clinician (PhC)/ Clinical Pharmacy Specialist; Visit Provider Pathology Hematology
DX: D45 Polycythemia vera (principal); Z79.01 Long term (current) use of anticoagulants
CPT/HCPCS: 36415; 80053; 83615; 85025; 85610

== ENCOUNTER → 2020-04-21 14:39 | Outpatient (CLI) | payer OTHER, SELFPAY ==
[2020-04-21 15:29] LABS: INR 1.9 (0.9-1.3); Prothrombin Time 22.3 SECONDS (10.1-12.7)
== END ==
PROVIDERS: PCP Family Medicine; Referring Provider Pharmacist Pharmacist Clinician (PhC)/ Clinical Pharmacy Specialist; Visit Provider Pharmacist Pharmacist Clinician (PhC)/ Clinical Pharmacy Specialist
DX: Z79.01 Long term (current) use of anticoagulants (principal)
CPT/HCPCS: 36415; 85610

== ENCOUNTER → 2020-05-08 15:10 | Outpatient (CLI) | payer OTHER, SELFPAY ==
[2020-05-08 15:49] LABS: INR 2.8 (0.9-1.3); Prothrombin Time 31.9 SECONDS (10.1-12.7)
== END ==
PROVIDERS: PCP Family Medicine; Referring Provider Pharmacist Pharmacist Clinician (PhC)/ Clinical Pharmacy Specialist; Visit Provider Pharmacist Pharmacist Clinician (PhC)/ Clinical Pharmacy Specialist
DX: Z79.01 Long term (current) use of anticoagulants (principal)
CPT/HCPCS: 36415; 85610

== ENCOUNTER → 2020-06-03 08:15 | Outpatient (CLI) | payer OTHER, SELFPAY ==
[2020-06-03 10:48] LABS: Add Manual Diff / Slide Review NO; Basophils Absolute Auto 0 /uL (0-100); Basophils Percent Auto 0.6 % (0-2); Eosinophils Absolute Auto 100 /uL (0-450); Eosinophils Percent Auto 2.4 % (2-4); Hematocrit 43.9 % (36-46); Hemoglobin 14.4 g/dL (12.0-16.0); Lymphocytes Absolute Auto 1200 /uL (1100-4500); Lymphocytes Percent Auto 31.7 % (25-40); Mean Corpuscular HGB Conc 32.7 % (30-36); Mean Corpuscular Volume 116.2 fL (80-100); Monocytes Absolute Auto 300 /uL (0-900); Monocytes Percent Auto 6.9 % (3-14); Neutrophils Absolute Auto 2200 /uL (1500-7000); Neutrophils Percent Auto 58.4 % (50-75); Platelet Count 452 X10^3/uL (150-400); Red Blood Cell Count 3.78 X10^6/uL (4.0-5.2); Red Cell Distribution Width 14.9 % (11.6-14.8); White Blood Cell Count 3.8 X10^3/uL (4.5-11.0)
[2020-06-03 11:06] LABS: INR 2.4 (0.9-1.3); Prothrombin Time 27.1 SECONDS (10.1-12.7)
[2020-06-03 11:13] LABS: Alanine Aminotransferase 76 IU/L (<35); Albumin 4.4 g/dL (3.5-5.0); Albumin Globulin Ratio 1.6 (1.0-2.8); Alkaline Phosphatase 130 U/L (38-126); Aspartate Aminotransferase 67 IU/L (14-36); BUN Creatinine Ratio 27.7 (6-22); Bilirubin Total 0.9 mg/dL (0.2-1.3); Blood Urea Nitrogen 13 mg/dL (7-17); Calcium 9.4 mg/dL (8.4-10.2); Carbon Dioxide 30 mmol/L (22-32); Chloride 104 mmol/L (98-107); Estimated Glomerular Filt Rate > 60.0 mL/min (>60); Globulin 2.7 g/dL (1.7-4.1); Glucose 107 mg/dL (70-100); HEMOLYSIS < 15 (0-50); Lactate Dehydrogenase 668 U/L (313-618); Potassium 3.8 mmol/L (3.4-5.1); Sodium 139 mmol/L (137-145); Total Protein 7.1 g/dL (6.3-8.2); Uric Acid 2.9 mg/dL (2.5-6.2)
[2020-06-03 11:25] LABS: Anisocytosis 1+; Macrocytosis 3+
[2020-06-03 11:26] LABS: Poikilocytosis 1+
== END ==
PROVIDERS: PCP Family Medicine; Referring Provider Pharmacist Pharmacist Clinician (PhC)/ Clinical Pharmacy Specialist; Visit Provider Pathology Hematology
DX: Z79.01 Long term (current) use of anticoagulants (principal); D45 Polycythemia vera
CPT/HCPCS: 36415; 80053; 83615; 84550; 85025; 85610

== ENCOUNTER → 2020-07-15 14:34 | Outpatient (CLI) | payer OTHER, SELFPAY ==
[2020-07-15 16:27] LABS: INR 2.2 (0.9-1.3); Prothrombin Time 24.6 SECONDS (10.1-12.7)
[2020-07-15 16:31] LABS: Add Manual Diff / Slide Review NO; Basophils Absolute Auto 100 /uL (0-100); Eosinophils Absolute Auto 100 /uL (0-450); Eosinophils Percent Auto 2.6 % (2-4); Hemoglobin 13.9 g/dL (12.0-16.0); Lymphocytes Absolute Auto 1900 /uL (1100-4500); Lymphocytes Percent Auto 34.2 % (25-40); Mean Corpuscular HGB Conc 33.1 % (30-36); Mean Corpuscular Hemoglobin 38.2 PG (26-34); Mean Corpuscular Volume 115.7 fL (80-100); Monocytes Absolute Auto 400 /uL (0-900); Monocytes Percent Auto 7.2 % (3-14); Neutrophils Absolute Auto 3000 /uL (1500-7000); Red Blood Cell Count 3.63 X10^6/uL (4.0-5.2); Red Cell Distribution Width 14.7 % (11.6-14.8); White Blood Cell Count 5.4 X10^3/uL (4.5-11.0)
[2020-07-15 16:35] LABS: Alanine Aminotransferase 80 IU/L (<35); Albumin 4.4 g/dL (3.5-5.0); Albumin Globulin Ratio 1.5 (1.0-2.8); Alkaline Phosphatase 152 U/L (38-126); Aspartate Aminotransferase 70 IU/L (14-36); BUN Creatinine Ratio 33.3 (6-22); Bilirubin Total 0.8 mg/dL (0.2-1.3); Blood Urea Nitrogen 15 mg/dL (7-17); Calcium 9.3 mg/dL (8.4-10.2); Carbon Dioxide 29 mmol/L (22-32); Chloride 105 mmol/L (98-107); Estimated Glomerular Filt Rate > 60.0 mL/min (>60); Globulin 2.9 g/dL (1.7-4.1); Glucose 116 mg/dL (70-100); HEMOLYSIS < 15 (0-50); Lactate Dehydrogenase 690 U/L (313-618); Potassium 3.8 mmol/L (3.4-5.1); Sodium 139 mmol/L (137-145); Total Protein 7.3 g/dL (6.3-8.2)
[2020-07-15 17:04] LABS: Anisocytosis 2+
[2020-07-15 17:05] LABS: Macrocytosis 2+
[2020-07-15 17:06] LABS: Platelet Count 440 X10^3/uL (150-400)
== END ==
PROVIDERS: Pathology Hematology; PCP Family Medicine; Referring Provider Pharmacist Pharmacist Clinician (PhC)/ Clinical Pharmacy Specialist; Visit Provider Pharmacist Pharmacist Clinician (PhC)/ Clinical Pharmacy Specialist
DX: Z79.01 Long term (current) use of anticoagulants (principal); D45 Polycythemia vera
CPT/HCPCS: 36415; 80053; 83615; 85025; 85610

== ENCOUNTER → 2020-09-02 12:56 | Outpatient (CLI) | payer OTHER, SELFPAY ==
[2020-09-02 14:26] LABS: INR 2.6 (0.9-1.3)
== END ==
PROVIDERS: PCP Family Medicine; Referring Provider Pharmacist Pharmacist Clinician (PhC)/ Clinical Pharmacy Specialist; Visit Provider Pharmacist Pharmacist Clinician (PhC)/ Clinical Pharmacy Specialist
DX: Z79.01 Long term (current) use of anticoagulants (principal)
CPT/HCPCS: 36415; 85610

== ENCOUNTER → 2020-10-06 12:56 | Outpatient (CLI) | payer OTHER, SELFPAY ==
[2020-10-06 13:38] LABS: INR 2.6 (0.9-1.3); Prothrombin Time 28.8 SECONDS (10.1-12.7)
== END ==
PROVIDERS: PCP Family Medicine; Referring Provider Pharmacist Pharmacist Clinician (PhC)/ Clinical Pharmacy Specialist; Visit Provider Pharmacist Pharmacist Clinician (PhC)/ Clinical Pharmacy Specialist
DX: Z79.01 Long term (current) use of anticoagulants (principal)
CPT/HCPCS: 36415; 85610

== ENCOUNTER → 2021-01-02 14:28 | Outpatient (CLI) | payer OTHER, SELFPAY ==
[2021-01-02 15:26] LABS: INR 2.6 (0.9-1.3); Prothrombin Time 30.2 SECONDS (10.1-12.7)
== END ==
PROVIDERS: PCP Family Medicine; Referring Provider Pharmacist Pharmacist Clinician (PhC)/ Clinical Pharmacy Specialist; Visit Provider Pharmacist Pharmacist Clinician (PhC)/ Clinical Pharmacy Specialist
DX: Z79.01 Long term (current) use of anticoagulants (principal)
CPT/HCPCS: 36415; 85610

== ENCOUNTER → 2021-02-19 07:12 | Outpatient (CLI) | payer OTHER, SELFPAY ==
[2021-02-19 08:24] LABS: INR 1.9 (0.9-1.3); Prothrombin Time 22.1 SECONDS (10.1-12.7)
[2021-02-19 08:30] LABS: Add Manual Diff / Slide Review NO; Basophils Absolute Auto 100 /uL (0-100); Basophils Percent Auto 1.3 % (0-2); Eosinophils Absolute Auto 100 /uL (0-450); Eosinophils Percent Auto 2.8 % (2-4); Hematocrit 43.2 % (36-46); Hemoglobin 14.6 g/dL (12.0-16.0); Lymphocytes Absolute Auto 1400 /uL (1100-4500); Lymphocytes Percent Auto 30.6 % (25-40); Mean Corpuscular HGB Conc 33.9 % (30-36); Mean Corpuscular Hemoglobin 38.4 PG (26-34); Mean Corpuscular Volume 113.3 fL (80-100); Monocytes Absolute Auto 300 /uL (0-900); Monocytes Percent Auto 6.3 % (3-14); Neutrophils Absolute Auto 2700 /uL (1500-7000); Platelet Count 392 X10^3/uL (150-400); Red Blood Cell Count 3.81 X10^6/uL (4.0-5.2); Red Cell Distribution Width 14.2 % (11.6-14.8); White Blood Cell Count 4.6 X10^3/uL (4.5-11.0)
[2021-02-19 09:10] LABS: Spherocytes 1+
[2021-02-19 09:11] LABS: Anisocytosis 1+; Macrocytosis 2+
== END ==
PROVIDERS: PCP Family Medicine; Referring Provider Pharmacist Pharmacist Clinician (PhC)/ Clinical Pharmacy Specialist; Visit Provider Pharmacist Pharmacist Clinician (PhC)/ Clinical Pharmacy Specialist
DX: D45 Polycythemia vera (principal); Z79.01 Long term (current) use of anticoagulants
CPT/HCPCS: 36415; 85025; 85610

== ENCOUNTER → 2021-03-31 06:58 | Outpatient (CLI) | payer OTHER, SELFPAY ==
[2021-03-31 08:50] LABS: Add Manual Diff / Slide Review NO; Basophils Absolute Auto 100 /uL (0-100); Basophils Percent Auto 1.4 % (0-2); Eosinophils Absolute Auto 100 /uL (0-450); Eosinophils Percent Auto 2.5 % (2-4); Hematocrit 43.5 % (36-46); Hemoglobin 14.8 g/dL (12.0-16.0); Lymphocytes Absolute Auto 1400 /uL (1100-4500); Lymphocytes Percent Auto 32.2 % (25-40); Mean Corpuscular HGB Conc 33.9 % (30-36); Mean Corpuscular Hemoglobin 38.3 PG (26-34); Monocytes Absolute Auto 300 /uL (0-900); Monocytes Percent Auto 7.8 % (3-14); Neutrophils Absolute Auto 2400 /uL (1500-7000); Neutrophils Percent Auto 56.1 % (50-75); Platelet Count 501 X10^3/uL (150-400); Red Blood Cell Count 3.85 X10^6/uL (4.0-5.2); Red Cell Distribution Width 14.6 % (11.6-14.8); White Blood Cell Count 4.2 X10^3/uL (4.5-11.0)
[2021-03-31 09:17] LABS: Alanine Aminotransferase 102 IU/L (<35); Albumin 4.6 g/dL (3.5-5.0); Albumin Globulin Ratio 1.6 (1.0-2.8); Alkaline Phosphatase 166 U/L (38-126); Aspartate Aminotransferase 116 IU/L (14-36); BUN Creatinine Ratio 32.5 (6-22); Bilirubin Total 1.1 mg/dL (0.2-1.3); Blood Urea Nitrogen 13 mg/dL (7-17); Calcium 9.3 mg/dL (8.4-10.2); Carbon Dioxide 27 mmol/L (22-32); Chloride 106 mmol/L (98-107); Cholesterol 195 mg/dL (140-199); Estimated Glomerular Filt Rate > 60.0 mL/min (>60); Globulin 2.8 g/dL (1.7-4.1); Glucose 84 mg/dL (70-100); Lactate Dehydrogenase 817 U/L (313-618); Potassium 3.8 mmol/L (3.4-5.1); Sodium 140 mmol/L (137-145); Total Protein 7.4 g/dL (6.3-8.2); Triglycerides 53 mg/dL (35-150); VLDL Cholesterol Calculated 11 mg/dL (2-30)
[2021-03-31 09:27] LABS: HEMOLYSIS 18 (0-50)
[2021-03-31 09:30] LABS: HDL Cholesterol 124 mg/dL (40-60); LDL Cholesterol Calculated 60 mg/dL (<100)
[2021-03-31 09:32] LABS: INR 2.1 (0.9-1.3); Prothrombin Time 24.7 SECONDS (10.1-12.7)
[2021-03-31 09:43] LABS: TSH w/ Reflex to FT4 2.05 uIU/mL (0.47-4.68)
[2021-03-31 12:21] LABS: Anisocytosis 1+; Macrocytosis 3+; Poikilocytosis 1+
[2021-03-31 12:22] LABS: Platelet Estimate Increased on smear
[2021-03-31 15:32] LABS: Hepatitis B Surface Antigen NEGATIVE s/c (NEGATIVE)
[2021-03-31 15:49] LABS: HIV 1 & 2 Ab/Ag 4th Gen Combo NEGATIVE (NEGATIVE); Hep C Virus Ab w/Reflex Quant NEGATIVE s/c (NEGATIVE)
[2021-04-01 05:23] LABS: RPR Screen Non Reactive (Non Reactive)
== END ==
PROVIDERS: PCP Family Medicine; Referring Provider Family Medicine; Visit Provider Family Medicine
DX: Z00.00 Encounter for general adult medical examination without abnormal findings (principal); Z79.01 Long term (current) use of anticoagulants; Z92.89 Personal history of other medical treatment; D45 Polycythemia vera; Z90.81 Acquired absence of spleen; I81 Portal vein thrombosis
CPT/HCPCS: 36415; 80053; 80061; 83615; 84443; 85025; 85610; 86592; 86696; 86803; 87340; 87389

== ENCOUNTER → 2021-04-16 07:14 | Outpatient (CLI) | payer OTHER, SELFPAY ==
--- NOTE | 2021-04-16 07:17 | DI.RAD.S_ITS ---
PROCEDURE: XR CHEST 2V INDICATIONS: WHEEZING TECHNIQUE: 2 views of the chest were acquired. COMPARISON: [facility], , CHEST 2 VIEW, 07/11/2017, 7:57. FINDINGS: Surgical changes and devices: None. Lungs and pleura: Lungs are clear. No pleural effusions or pneumothorax. Mediastinum: Mediastinal contours are normal. Heart size is normal. Bones and chest wall: No suspicious bony abnormalities. Soft tissues appear unremarkable. IMPRESSION: No acute pulmonary process. Dictated by: Sania Gonzalez M.D. on 04/16/2021 at 8:06 Approved by: Sania Gonzalez M.D. on 04/16/2021 at 8:06
== END ==
PROVIDERS: PCP Family Medicine; Referring Provider Family Medicine; Visit Provider Family Medicine
DX: R06.2 Wheezing (principal)
CPT/HCPCS: 71046

== ENCOUNTER → 2021-05-14 12:10 | Outpatient (CLI) | payer OTHER, SELFPAY ==
[2021-05-14 12:31] LABS: Prothrombin Time 34.9 SECONDS (10.1-12.7)
== END ==
PROVIDERS: PCP Family Medicine; Referring Provider Pharmacist Pharmacist Clinician (PhC)/ Clinical Pharmacy Specialist; Visit Provider Pharmacist Pharmacist Clinician (PhC)/ Clinical Pharmacy Specialist
DX: Z79.01 Long term (current) use of anticoagulants (principal)
CPT/HCPCS: 36415; 85610

== ENCOUNTER → 2021-06-03 16:29 | Outpatient (CLI) | payer OTHER, SELFPAY ==
[2021-06-03 16:52] LABS: COVID19 -Nasal RAPID POSITIVE (Negative)
== END ==
PROVIDERS: PCP Family Medicine; Referring Provider Nurse Practitioner Family; Visit Provider Nurse Practitioner Family
DX: Z20.822 Contact with and (suspected) exposure to COVID-19 (principal)
CPT/HCPCS: 87635

== ENCOUNTER → 2021-06-09 10:36 | Outpatient (ROUT) | payer OTHER, SELFPAY ==
[2021-06-09 10:47] LABS: INR 4.5 (0.9-1.3); Prothrombin Time 52.8 SECONDS (10.1-12.7)
== END ==
PROVIDERS: PCP Family Medicine; Visit Provider Pharmacist Pharmacist Clinician (PhC)/ Clinical Pharmacy Specialist
DX: Z79.01 Long term (current) use of anticoagulants (principal)
CPT/HCPCS: 85610

== ENCOUNTER → 2021-06-15 15:29 | Outpatient (CLI) | payer OTHER, SELFPAY ==
[2021-06-15 16:03] LABS: Add Manual Diff / Slide Review NO; Basophils Absolute Auto 0 /uL (0-100); Basophils Percent Auto 0.8 % (0-2); Eosinophils Absolute Auto 200 /uL (0-450); Eosinophils Percent Auto 4.3 % (2-4); Hematocrit 39.9 % (36-46); Hemoglobin 13.5 g/dL (12.0-16.0); Lymphocytes Absolute Auto 1500 /uL (1100-4500); Lymphocytes Percent Auto 33.5 % (25-40); Mean Corpuscular HGB Conc 33.9 % (30-36); Mean Corpuscular Hemoglobin 38.3 PG (26-34); Mean Corpuscular Volume 113.2 fL (80-100); Monocytes Absolute Auto 600 /uL (0-900); Monocytes Percent Auto 12.5 % (3-14); Neutrophils Absolute Auto 2300 /uL (1500-7000); Neutrophils Percent Auto 48.9 % (50-75); Red Blood Cell Count 3.53 X10^6/uL (4.0-5.2); Red Cell Distribution Width 15.2 % (11.6-14.8); White Blood Cell Count 4.6 X10^3/uL (4.5-11.0)
[2021-06-15 16:15] LABS: Prothrombin Time 65.4 SECONDS (10.1-12.7)
[2021-06-15 16:26] LABS: Alanine Aminotransferase 33 IU/L (<35); Albumin 4.4 g/dL (3.5-5.0); Albumin Globulin Ratio 1.5 (1.0-2.8); Alkaline Phosphatase 116 U/L (38-126); Aspartate Aminotransferase 40 IU/L (14-36); BUN Creatinine Ratio 20.8 (6-22); Bilirubin Total 0.9 mg/dL (0.2-1.3); Bilirubin Unconjugated 0.9 mg/dL (0.0-1.1); Blood Urea Nitrogen 10 mg/dL (7-17); Calcium 9.4 mg/dL (8.4-10.2); Carbon Dioxide 29 mmol/L (22-32); Chloride 103 mmol/L (98-107); Estimated Glomerular Filt Rate > 60.0 mL/min (>60); Glucose 79 mg/dL (70-100); HEMOLYSIS < 15 (0-50); Potassium 3.9 mmol/L (3.4-5.1); Sodium 140 mmol/L (137-145); Total Protein 7.4 g/dL (6.3-8.2)
[2021-06-15 16:30] LABS: INR 5.5 (0.9-1.3)
[2021-06-15 16:41] LABS: Anisocytosis 1+; Macrocytosis 2+; Platelet Count 508 X10^3/uL (150-400)
== END ==
PROVIDERS: Pharmacist Pharmacist Clinician (PhC)/ Clinical Pharmacy Specialist; PCP Family Medicine; Referring Provider Pathology Hematology; Visit Provider Pathology Hematology
DX: Z79.01 Long term (current) use of anticoagulants (principal)
CPT/HCPCS: 36415; 80053; 80076; 85025; 85610

== ENCOUNTER → 2021-06-16 12:43 | Outpatient (CLI) | payer OTHER, SELFPAY ==
[2021-06-16 14:43] LABS: INR 4.3 (0.9-1.3); Prothrombin Time 51.3 SECONDS (10.1-12.7)
== END ==
PROVIDERS: PCP Family Medicine; Referring Provider Pharmacist Pharmacist Clinician (PhC)/ Clinical Pharmacy Specialist; Visit Provider Pharmacist Pharmacist Clinician (PhC)/ Clinical Pharmacy Specialist
DX: Z79.01 Long term (current) use of anticoagulants (principal)
CPT/HCPCS: 36415; 85610

== ENCOUNTER → 2021-06-18 11:45 | Outpatient (CLI) | payer OTHER, SELFPAY ==
[2021-06-18 15:39] LABS: INR 2.4 (0.9-1.3)
== END ==
PROVIDERS: PCP Family Medicine; Referring Provider Family Medicine; Visit Provider Family Medicine
DX: Z79.01 Long term (current) use of anticoagulants (principal)
CPT/HCPCS: 36415; 85610

== ENCOUNTER → 2021-06-23 15:56 | Outpatient (CLI) | payer OTHER, SELFPAY ==
[2021-06-23 17:01] LABS: Alanine Aminotransferase 56 IU/L (<35); Albumin 4.6 g/dL (3.5-5.0); Albumin Globulin Ratio 1.6 (1.0-2.8); Alkaline Phosphatase 108 U/L (38-126); Aspartate Aminotransferase 68 IU/L (14-36); BUN Creatinine Ratio 30.2 (6-22); Bilirubin Total 0.7 mg/dL (0.2-1.3); Bilirubin Unconjugated 0.7 mg/dL (0.0-1.1); Blood Urea Nitrogen 16 mg/dL (7-17); Calcium 9.7 mg/dL (8.4-10.2); Carbon Dioxide 31 mmol/L (22-32); Chloride 102 mmol/L (98-107); Estimated Glomerular Filt Rate > 60.0 mL/min (>60); Globulin 2.8 g/dL (1.7-4.1); Glucose 79 mg/dL (70-100); HEMOLYSIS < 15 (0-50); Potassium 3.8 mmol/L (3.4-5.1); Sodium 141 mmol/L (137-145); Total Protein 7.4 g/dL (6.3-8.2)
[2021-06-23 17:04] LABS: INR 2.5 (0.9-1.3); Prothrombin Time 28.3 SECONDS (10.1-12.7)
[2021-06-23 17:06] LABS: Add Manual Diff / Slide Review NO; Basophils Absolute Auto 0 /uL (0-100); Basophils Percent Auto 0.8 % (0-2); Eosinophils Absolute Auto 100 /uL (0-450); Eosinophils Percent Auto 1.5 % (2-4); Hematocrit 38.8 % (36-46); Hemoglobin 13.2 g/dL (12.0-16.0); Lymphocytes Absolute Auto 2100 /uL (1100-4500); Lymphocytes Percent Auto 41.9 % (25-40); Mean Corpuscular HGB Conc 34.1 % (30-36); Mean Corpuscular Hemoglobin 38.5 PG (26-34); Mean Corpuscular Volume 112.9 fL (80-100); Monocytes Absolute Auto 500 /uL (0-900); Monocytes Percent Auto 9.3 % (3-14); Neutrophils Absolute Auto 2300 /uL (1500-7000); Neutrophils Percent Auto 46.5 % (50-75); Platelet Count 584 X10^3/uL (150-400); Red Blood Cell Count 3.44 X10^6/uL (4.0-5.2); Red Cell Distribution Width 14.6 % (11.6-14.8)
[2021-06-23 18:06] LABS: Macrocytosis 3+
== END ==
PROVIDERS: PCP Family Medicine; Referring Provider Pharmacist Pharmacist Clinician (PhC)/ Clinical Pharmacy Specialist; Visit Provider Pharmacist Pharmacist Clinician (PhC)/ Clinical Pharmacy Specialist
DX: Z79.01 Long term (current) use of anticoagulants (principal); D45 Polycythemia vera
CPT/HCPCS: 36415; 80053; 80076; 85025; 85610

== ENCOUNTER → 2021-07-01 14:59 | Outpatient (CLI) | payer OTHER, SELFPAY ==
[2021-07-01 18:27] LABS: INR 2.6 (0.9-1.3); Prothrombin Time 30.1 SECONDS (10.1-12.7)
== END ==
PROVIDERS: PCP Family Medicine; Referring Provider Pharmacist Pharmacist Clinician (PhC)/ Clinical Pharmacy Specialist; Visit Provider Pharmacist Pharmacist Clinician (PhC)/ Clinical Pharmacy Specialist
DX: Z79.01 Long term (current) use of anticoagulants (principal)
CPT/HCPCS: 36415; 85610

== ENCOUNTER → 2021-07-17 09:35 | Outpatient (CLI) | payer OTHER, SELFPAY ==
[2021-07-17 10:44] LABS: Add Manual Diff / Slide Review NO; Basophils Absolute Auto 100 /uL (0-100); Basophils Percent Auto 1.1 % (0-2); Eosinophils Absolute Auto 200 /uL (0-450); Eosinophils Percent Auto 2.7 % (2-4); Hematocrit 42.4 % (36-46); Hemoglobin 14.2 g/dL (12.0-16.0); Lymphocytes Absolute Auto 1500 /uL (1100-4500); Lymphocytes Percent Auto 24.6 % (25-40); Mean Corpuscular HGB Conc 33.4 % (30-36); Mean Corpuscular Volume 113.5 fL (80-100); Monocytes Absolute Auto 600 /uL (0-900); Monocytes Percent Auto 9.3 % (3-14); Neutrophils Absolute Auto 3900 /uL (1500-7000); Neutrophils Percent Auto 62.3 % (50-75); Platelet Count 382 X10^3/uL (150-400); Red Blood Cell Count 3.73 X10^6/uL (4.0-5.2); White Blood Cell Count 6.3 X10^3/uL (4.5-11.0)
[2021-07-17 10:46] LABS: Macrocytosis 2+
[2021-07-17 10:58] LABS: Alanine Aminotransferase 72 IU/L (<35); Albumin 4.5 g/dL (3.5-5.0); Albumin Globulin Ratio 1.6 (1.0-2.8); Alkaline Phosphatase 129 U/L (38-126); Aspartate Aminotransferase 73 IU/L (14-36); BUN Creatinine Ratio 26.9 (6-22); Bilirubin Total 0.8 mg/dL (0.2-1.3); Blood Urea Nitrogen 14 mg/dL (7-17); Carbon Dioxide 28 mmol/L (22-32); Chloride 106 mmol/L (98-107); Estimated Glomerular Filt Rate > 60.0 mL/min (>60); Globulin 2.8 g/dL (1.7-4.1); Glucose 71 mg/dL (70-100); HEMOLYSIS < 15 (0-50); Potassium 4.4 mmol/L (3.4-5.1); Sodium 139 mmol/L (137-145); Total Protein 7.3 g/dL (6.3-8.2)
[2021-07-17 11:07] LABS: INR 2.3 (0.9-1.3); Prothrombin Time 25.8 SECONDS (10.1-12.7)
== END ==
PROVIDERS: PCP Family Medicine; Referring Provider Pharmacist Pharmacist Clinician (PhC)/ Clinical Pharmacy Specialist; Visit Provider Pharmacist Pharmacist Clinician (PhC)/ Clinical Pharmacy Specialist
DX: Z79.01 Long term (current) use of anticoagulants (principal); D45 Polycythemia vera
CPT/HCPCS: 36415; 80053; 80076; 85025; 85610

== ENCOUNTER → 2021-08-04 13:21 | Outpatient (CLI) | payer OTHER, SELFPAY ==
[2021-08-04 14:11] LABS: INR 2.6 (0.9-1.3); Prothrombin Time 30.6 SECONDS (10.1-12.7)
== END ==
PROVIDERS: PCP Family Medicine; Referring Provider Pharmacist Pharmacist Clinician (PhC)/ Clinical Pharmacy Specialist; Visit Provider Pharmacist Pharmacist Clinician (PhC)/ Clinical Pharmacy Specialist
DX: Z79.01 Long term (current) use of anticoagulants (principal)
CPT/HCPCS: 36415; 85610

== ENCOUNTER → 2021-09-04 08:14 | Outpatient (CLI) | payer OTHER, SELFPAY ==
[2021-09-04 16:49] LABS: INR 2.2 (0.9-1.3); Prothrombin Time 25.2 SECONDS (10.1-12.7)
== END ==
PROVIDERS: PCP Family Medicine; Referring Provider Pharmacist Pharmacist Clinician (PhC)/ Clinical Pharmacy Specialist; Visit Provider Pharmacist Pharmacist Clinician (PhC)/ Clinical Pharmacy Specialist
DX: Z79.01 Long term (current) use of anticoagulants (principal)
CPT/HCPCS: 36415; 85610

== ENCOUNTER → 2021-09-28 15:51 | Outpatient (CLI) | payer OTHER, SELFPAY ==
[2021-09-28 18:08] LABS: COVID-19 CEPHEID PCR (VTM/NP) Negative (Negative)
== END ==
PROVIDERS: PCP Family Medicine; Visit Provider Physical Medicine & Rehabilitation
DX: Z20.822 Contact with and (suspected) exposure to COVID-19 (principal)
CPT/HCPCS: C9803; U0003; U0005

== ENCOUNTER → 2021-10-05 07:59 | Outpatient (CLI) | payer OTHER, SELFPAY ==
[2021-10-05 08:25] LABS: Add Manual Diff / Slide Review NO; Basophils Absolute Auto 0 /uL (0-100); Basophils Percent Auto 0.9 % (0-2); Eosinophils Absolute Auto 100 /uL (0-450); Eosinophils Percent Auto 2.1 % (2-4); Hematocrit 41.7 % (36-46); Hemoglobin 13.8 g/dL (12.0-16.0); Lymphocytes Absolute Auto 1300 /uL (1100-4500); Mean Corpuscular HGB Conc 33.2 % (30-36); Mean Corpuscular Hemoglobin 37.4 PG (26-34); Mean Corpuscular Volume 112.7 fL (80-100); Monocytes Absolute Auto 300 /uL (0-900); Monocytes Percent Auto 7.6 % (3-14); Neutrophils Absolute Auto 1800 /uL (1500-7000); Neutrophils Percent Auto 51.4 % (50-75); Platelet Count 492 X10^3/uL (150-400); Red Cell Distribution Width 14.6 % (11.6-14.8); White Blood Cell Count 3.5 X10^3/uL (4.5-11.0)
[2021-10-05 08:32] LABS: INR 1.6 (0.9-1.3); Prothrombin Time 18.7 SECONDS (10.1-12.7)
[2021-10-05 08:36] LABS: Estimated Glomerular Filt Rate > 60.0 mL/min (>60)
[2021-10-05 08:49] LABS: Macrocytosis 2+
== END ==
PROVIDERS: PCP Family Medicine; Referring Provider Pharmacist; Visit Provider Pharmacist
DX: I81 Portal vein thrombosis (principal)
CPT/HCPCS: 36415; 82565; 85025; 85610

== ENCOUNTER → 2021-10-07 08:06 | Outpatient (CLI) | payer OTHER, SELFPAY ==
[2021-10-07 09:07] LABS: INR 2.1 (0.9-1.3)
== END ==
PROVIDERS: PCP Family Medicine; Referring Provider Pharmacist Pharmacist Clinician (PhC)/ Clinical Pharmacy Specialist; Visit Provider Pharmacist Pharmacist Clinician (PhC)/ Clinical Pharmacy Specialist
DX: Z79.01 Long term (current) use of anticoagulants (principal)
CPT/HCPCS: 36415; 85610

== ENCOUNTER → 2021-10-23 12:15 | Outpatient (CLI) | payer OTHER, SELFPAY ==
[2021-10-23 12:56] LABS: Add Manual Diff / Slide Review NO; Basophils Absolute Auto 0 /uL (0-100); Eosinophils Absolute Auto 100 /uL (0-450); Eosinophils Percent Auto 1.4 % (2-4); Hematocrit 41.6 % (36-46); Hemoglobin 14.4 g/dL (12.0-16.0); Lymphocytes Absolute Auto 1300 /uL (1100-4500); Lymphocytes Percent Auto 30.3 % (25-40); Mean Corpuscular HGB Conc 34.6 % (30-36); Mean Corpuscular Hemoglobin 38.5 PG (26-34); Mean Corpuscular Volume 111.1 fL (80-100); Monocytes Absolute Auto 200 /uL (0-900); Monocytes Percent Auto 5.8 % (3-14); Neutrophils Absolute Auto 2600 /uL (1500-7000); Neutrophils Percent Auto 61.5 % (50-75); Red Blood Cell Count 3.74 X10^6/uL (4.0-5.2); Red Cell Distribution Width 14.6 % (11.6-14.8); White Blood Cell Count 4.3 X10^3/uL (4.5-11.0)
[2021-10-23 12:58] LABS: INR 1.8 (0.9-1.3); Prothrombin Time 21.2 SECONDS (10.1-12.7)
[2021-10-23 13:05] LABS: Alanine Aminotransferase 74 IU/L (<35); Albumin 4.5 g/dL (3.5-5.0); Albumin Globulin Ratio 1.9 (1.0-2.8); Alkaline Phosphatase 116 U/L (38-126); Aspartate Aminotransferase 70 IU/L (14-36); BUN Creatinine Ratio 22.2 (6-22); Bilirubin Total 0.7 mg/dL (0.2-1.3); Blood Urea Nitrogen 12 mg/dL (7-17); Calcium 9.5 mg/dL (8.4-10.2); Carbon Dioxide 28 mmol/L (22-32); Chloride 104 mmol/L (98-107); Estimated Glomerular Filt Rate > 60.0 mL/min (>60); Globulin 2.4 g/dL (1.7-4.1); Glucose 116 mg/dL (70-100); HEMOLYSIS < 15 (0-50); Lactate Dehydrogenase 654 U/L (313-618); Sodium 140 mmol/L (137-145); Total Protein 6.9 g/dL (6.3-8.2); Uric Acid 2.6 mg/dL (2.5-6.2)
[2021-10-23 13:18] LABS: Platelet Count 341 X10^3/uL (150-400)
[2021-10-23 13:19] LABS: Anisocytosis 1+; Macrocytosis 2+
== END ==
PROVIDERS: PCP Family Medicine; Referring Provider Pathology Hematology; Visit Provider Pathology Hematology
DX: D45 Polycythemia vera (principal)
CPT/HCPCS: 36415; 80053; 83615; 84550; 85025; 85610

== ENCOUNTER → 2021-11-06 08:11 | Outpatient (CLI) | payer OTHER, SELFPAY ==
[2021-11-06 13:14] LABS: INR 2.1 (0.9-1.3); Prothrombin Time 24.7 SECONDS (10.1-12.7)
== END ==
PROVIDERS: PCP Family Medicine; Referring Provider Pharmacist Pharmacist Clinician (PhC)/ Clinical Pharmacy Specialist; Visit Provider Pharmacist Pharmacist Clinician (PhC)/ Clinical Pharmacy Specialist
DX: Z79.01 Long term (current) use of anticoagulants (principal)
CPT/HCPCS: 36415; 85610

== ENCOUNTER → 2021-12-03 08:18 | Outpatient (CLI) | payer OTHER, SELFPAY ==
[2021-12-03 09:53] LABS: INR 2.4 (0.9-1.3); Prothrombin Time 27.1 SECONDS (10.1-12.7)
== END ==
PROVIDERS: PCP Family Medicine; Referring Provider Pharmacist Pharmacist Clinician (PhC)/ Clinical Pharmacy Specialist; Visit Provider Pharmacist Pharmacist Clinician (PhC)/ Clinical Pharmacy Specialist
DX: Z79.01 Long term (current) use of anticoagulants (principal)
CPT/HCPCS: 36415; 85610

== ENCOUNTER → 2021-12-09 07:05 | Outpatient (CLI) | payer OTHER, SELFPAY ==
[2021-12-09 08:25] LABS: Basophils Absolute Auto 0 /uL (0-100); Basophils Percent Auto 1.1 % (0-2); Eosinophils Absolute Auto 100 /uL (0-450); Eosinophils Percent Auto 1.7 % (2-4); Hematocrit 40.7 % (36-46); Lymphocytes Absolute Auto 1200 /uL (1100-4500); Lymphocytes Percent Auto 29.9 % (25-40); Mean Corpuscular HGB Conc 34.3 % (30-36); Mean Corpuscular Hemoglobin 38.1 PG (26-34); Mean Corpuscular Volume 111.3 fL (80-100); Monocytes Absolute Auto 200 /uL (0-900); Monocytes Percent Auto 6.4 % (3-14); Neutrophils Absolute Auto 2400 /uL (1500-7000); Neutrophils Percent Auto 60.9 % (50-75); Platelet Count 471 X10^3/uL (150-400); Red Blood Cell Count 3.66 X10^6/uL (4.0-5.2); Red Cell Distribution Width 15.2 % (11.6-14.8); White Blood Cell Count 3.9 X10^3/uL (4.5-11.0)
[2021-12-09 08:26] LABS: Add Manual Diff / Slide Review SLIDE REVIEW
[2021-12-09 09:03] LABS: Alanine Aminotransferase 153 IU/L (<35); Albumin 4.5 g/dL (3.5-5.0); Alkaline Phosphatase 138 U/L (38-126); Aspartate Aminotransferase 146 IU/L (14-36); BUN Creatinine Ratio 29.6 (6-22); Bilirubin Total 1.2 mg/dL (0.2-1.3); Bilirubin Unconjugated 1.3 mg/dL (0.0-1.1); Blood Urea Nitrogen 16 mg/dL (7-17); Calcium 9.6 mg/dL (8.4-10.2); Carbon Dioxide 29 mmol/L (22-32); Chloride 105 mmol/L (98-107); Estimated Glomerular Filt Rate > 60 mL/min (>60); Globulin 2.3 g/dL (1.7-4.1); Glucose 94 mg/dL (70-100); HEMOLYSIS < 15 (0-50); Potassium 4.4 mmol/L (3.4-5.1); Sodium 140 mmol/L (137-145); Total Protein 6.8 g/dL (6.3-8.2)
[2021-12-09 09:33] LABS: Anisocytosis 1+; Macrocytosis 2+
== END ==
PROVIDERS: PCP Family Medicine; Referring Provider Pathology Hematology; Visit Provider Pathology Hematology
DX: D45 Polycythemia vera (principal)
CPT/HCPCS: 36415; 80053; 80076; 85025

== ENCOUNTER → 2021-12-25 12:30 | Outpatient (CLI) | payer OTHER, SELFPAY ==
[2021-12-25 13:20] LABS: INR 2.3 (0.9-1.3); Prothrombin Time 26.4 SECONDS (10.1-12.7)
== END ==
PROVIDERS: PCP Family Medicine; Referring Provider Pharmacist Pharmacist Clinician (PhC)/ Clinical Pharmacy Specialist; Visit Provider Pharmacist Pharmacist Clinician (PhC)/ Clinical Pharmacy Specialist
DX: Z79.01 Long term (current) use of anticoagulants (principal)
CPT/HCPCS: 36415; 85610

== ENCOUNTER → 2022-01-27 10:48 | Outpatient (CLI) | payer OTHER, SELFPAY ==
[2022-01-27 12:32] LABS: Prothrombin Time 23.2 SECONDS (10.1-12.7)
== END ==
PROVIDERS: PCP Family Medicine; Referring Provider Pharmacist Pharmacist Clinician (PhC)/ Clinical Pharmacy Specialist; Visit Provider Pharmacist Pharmacist Clinician (PhC)/ Clinical Pharmacy Specialist
DX: Z79.01 Long term (current) use of anticoagulants (principal)
CPT/HCPCS: 36415; 85610

== ENCOUNTER → 2022-02-25 13:03 | Outpatient (CLI) | payer OTHER, SELFPAY ==
[2022-02-25 14:17] LABS: INR 2.5 (0.9-1.3); Prothrombin Time 28.7 SECONDS (10.1-12.7)
[2022-02-25 14:18] LABS: Basophils Absolute Auto 100 /uL (0-100); Basophils Percent Auto 1.2 % (0-2); Eosinophils Absolute Auto 100 /uL (0-450); Eosinophils Percent Auto 1.3 % (2-4); Lymphocytes Absolute Auto 1200 /uL (1100-4500); Lymphocytes Percent Auto 23.4 % (25-40); Mean Corpuscular HGB Conc 34.2 % (30-36); Mean Corpuscular Hemoglobin 38.3 PG (26-34); Monocytes Absolute Auto 300 /uL (0-900); Monocytes Percent Auto 6.3 % (3-14); Neutrophils Absolute Auto 3400 /uL (1500-7000); Neutrophils Percent Auto 67.8 % (50-75); Platelet Count 464 X10^3/uL (150-400); Red Blood Cell Count 3.66 X10^6/uL (4.0-5.2); Red Cell Distribution Width 14.2 % (11.6-14.8)
[2022-02-25 14:23] LABS: Add Manual Diff / Slide Review SLIDE REVIEW
[2022-02-25 14:56] LABS: Macrocytosis 2+; Platelet Estimate Incr
[2022-02-25 14:58] LABS: Poikilocytosis 1+
[2022-02-25 15:03] LABS: Alanine Aminotransferase 73 IU/L (<35); Albumin 4.5 g/dL (3.5-5.0); Albumin Globulin Ratio 1.7 (1.0-2.8); Alkaline Phosphatase 112 U/L (38-126); Aspartate Aminotransferase 67 IU/L (14-36); Bilirubin Total 1.1 mg/dL (0.2-1.3); Blood Urea Nitrogen 14 mg/dL (7-17); Calcium 9.3 mg/dL (8.4-10.2); Carbon Dioxide 28 mmol/L (22-32); Chloride 105 mmol/L (98-107); Estimated Glomerular Filt Rate > 60 mL/min (>60); Globulin 2.7 g/dL (1.7-4.1); Glucose 115 mg/dL (70-100); HEMOLYSIS < 15 (0-50); Lactate Dehydrogenase 724 U/L (313-618); Potassium 3.9 mmol/L (3.4-5.1); Sodium 139 mmol/L (137-145); Total Protein 7.2 g/dL (6.3-8.2)
== END ==
PROVIDERS: PCP Family Medicine; Referring Provider Pathology Hematology; Visit Provider Pathology Hematology
DX: D45 Polycythemia vera (principal); I81 Portal vein thrombosis
CPT/HCPCS: 36415; 80053; 83615; 84550; 85025; 85610

== ENCOUNTER → 2022-03-29 15:43 | Outpatient (CLI) | payer OTHER, SELFPAY ==
[2022-03-29 17:56] LABS: INR 2.2 (0.9-1.3); Prothrombin Time 25.9 SECONDS (10.1-12.7)
== END ==
PROVIDERS: PCP Family Medicine; Referring Provider Pharmacist Pharmacist Clinician (PhC)/ Clinical Pharmacy Specialist; Visit Provider Pharmacist Pharmacist Clinician (PhC)/ Clinical Pharmacy Specialist
DX: I81 Portal vein thrombosis (principal)
CPT/HCPCS: 36415; 85610

== ENCOUNTER → 2022-05-26 15:12 | Outpatient (CLI) | payer OTHER, SELFPAY ==
[2022-05-26 16:13] LABS: INR 3.1 (0.9-1.3); Prothrombin Time 35.6 SECONDS (10.1-12.7)
== END ==
PROVIDERS: PCP Family Medicine; Referring Provider Pharmacist Pharmacist Clinician (PhC)/ Clinical Pharmacy Specialist; Visit Provider Pharmacist Pharmacist Clinician (PhC)/ Clinical Pharmacy Specialist
DX: I81 Portal vein thrombosis (principal)
CPT/HCPCS: 36415; 85610

== ENCOUNTER → 2022-06-09 07:32 | Outpatient (CLI) | payer OTHER, SELFPAY ==
[2022-06-09 08:07] LABS: INR 2.9 (0.9-1.3); Prothrombin Time 33.9 SECONDS (10.1-12.7)
[2022-06-09 08:08] LABS: Add Manual Diff / Slide Review NO; Basophils Absolute Auto 0 /uL (0-100); Eosinophils Absolute Auto 100 /uL (0-450); Eosinophils Percent Auto 2.5 % (2-4); Hematocrit 40.6 % (36-46); Hemoglobin 13.8 g/dL (12.0-16.0); Lymphocytes Absolute Auto 1100 /uL (1100-4500); Lymphocytes Percent Auto 29.9 % (25-40); Mean Corpuscular HGB Conc 34.1 % (30-36); Mean Corpuscular Hemoglobin 38.1 PG (26-34); Mean Corpuscular Volume 111.7 fL (80-100); Monocytes Absolute Auto 300 /uL (0-900); Monocytes Percent Auto 8.3 % (3-14); Neutrophils Absolute Auto 2200 /uL (1500-7000); Neutrophils Percent Auto 58.3 % (50-75); Platelet Count 404 X10^3/uL (150-400); Red Blood Cell Count 3.63 X10^6/uL (4.0-5.2); Red Cell Distribution Width 15.7 % (11.6-14.8); White Blood Cell Count 3.7 X10^3/uL (4.5-11.0)
[2022-06-09 08:14] LABS: Alanine Aminotransferase 55 IU/L (<35); Albumin 4.2 g/dL (3.5-5.0); Albumin Globulin Ratio 1.6 (1.0-2.8); Alkaline Phosphatase 121 U/L (38-126); Aspartate Aminotransferase 56 IU/L (14-36); BUN Creatinine Ratio 30.2 (6-22); Blood Urea Nitrogen 13 mg/dL (7-17); Calcium 9.6 mg/dL (8.4-10.2); Carbon Dioxide 28 mmol/L (22-32); Chloride 105 mmol/L (98-107); Estimated Glomerular Filt Rate > 60 mL/min (>60); Globulin 2.6 g/dL (1.7-4.1); Glucose 71 mg/dL (70-100); HEMOLYSIS 39 (0-50); Lactate Dehydrogenase 335 U/L (120-246); Potassium 4.2 mmol/L (3.4-5.1); Sodium 140 mmol/L (137-145); Total Protein 6.8 g/dL (6.3-8.2); Uric Acid 2.4 mg/dL (2.5-6.2)
[2022-06-09 09:52] LABS: Macrocytosis 1+; Target Cells 1+
== END ==
PROVIDERS: PCP Family Medicine; Referring Provider Pharmacist Pharmacist Clinician (PhC)/ Clinical Pharmacy Specialist; Visit Provider Pharmacist Pharmacist Clinician (PhC)/ Clinical Pharmacy Specialist
DX: I81 Portal vein thrombosis (principal); D45 Polycythemia vera
CPT/HCPCS: 36415; 80053; 83615; 84550; 85025; 85610

== ENCOUNTER → 2022-06-24 07:20 | Outpatient (CLI) | payer OTHER, SELFPAY ==
[2022-06-24 08:13] LABS: INR 2.3 (0.9-1.3)
== END ==
PROVIDERS: PCP Family Medicine; Referring Provider Pharmacist Pharmacist Clinician (PhC)/ Clinical Pharmacy Specialist; Visit Provider Pharmacist Pharmacist Clinician (PhC)/ Clinical Pharmacy Specialist
DX: I81 Portal vein thrombosis (principal)
CPT/HCPCS: 36415; 85610

== ENCOUNTER → 2022-06-29 06:51 | Outpatient (CLI) | payer OTHER, SELFPAY ==
[2022-06-29 08:22] LABS: INR 2.6 (0.9-1.3); Prothrombin Time 30.2 SECONDS (10.1-12.7)
== END ==
PROVIDERS: PCP Family Medicine; Referring Provider Pharmacist Pharmacist Clinician (PhC)/ Clinical Pharmacy Specialist; Visit Provider Pharmacist Pharmacist Clinician (PhC)/ Clinical Pharmacy Specialist
DX: I81 Portal vein thrombosis (principal)
CPT/HCPCS: 36415; 85610

== ENCOUNTER → 2022-07-01 11:25 | Outpatient (CLI) | payer OTHER, SELFPAY ==
[2022-07-01 12:47] LABS: COVID19 -Nasal RAPID Negative (Negative)
== END ==
PROVIDERS: PCP Family Medicine; Visit Provider Surgery
DX: Z01.812 Encounter for preprocedural laboratory examination (principal); Z20.822 Contact with and (suspected) exposure to COVID-19
CPT/HCPCS: 87635; C9803

== ENCOUNTER 2022-07-02 06:49 | Day surgery (SDC) | payer OTHER, SELFPAY ==
--- NOTE | 2022-07-02 | PATH_ITS ---
[facility] Accession Number: [id number] . 01 Material submitted: . shoulder - RIGHT SHOULDER SOFT TISSUE MASS. Modifiers: right . 01 Diagnosis: Right Shoulder, Excisions: Fragments of fibroadipose tissue, consistent with lipoma. MRV 07/05/2022 1258 Local . 01 Electronically signed: . Bentley Medina MD, Dermatopathologist NPI- [id number] . 01 Gross description: . Received in formalin, labeled with the patient's name, , and right shoulder soft tissue mass, and consists of two yellow, lobulated soft tissue fragments. The first measures 6.3 x 6.2 x 2.0 cm. The external surface is inked blue. The second measures 2.9 x 1.8 x 1.2 cm. The external surface is inked black. Both fragments are sectioned to reveal a yellow to pink cut surface with thin white striations consistent with fibrous tissue occupying less than 10% of the cut surface. Rental Representative sections are submitted in cassettes A1-A3. ([id number]) /FRR 07/03/2022 1805 Local . 01 Pathologist provided ICD-10: D17.9 . 01 CPT . 183257 Specimen Comment: A courtesy copy of this report has been sent to [phone] Performed at: 01 [facility] [address] [place] [address], [place], [place] [id number] MD Peterson Encarnacion MD Phone: [phone]
[2022-07-02 10:14] LABS: INR 2.4 (0.9-1.3); Prothrombin Time 27.3 SECONDS (10.1-12.7)
[2022-07-02 13:55] VITALS: BP 156/91; PULSE 98; RESP 12; TEMP 37.1; O2SAT 98; BMI 20.3
[2022-07-02] MEDS: LACTATED RINGERS 1,000 ML 100 ML IV (14:07)
--- NOTE | 2022-07-02 14:11 | SUR.PREOP ---
PT and INR resulted. Dr Gracie eagle.
--- NOTE | 2022-07-02 15:34 | PM.HP.1 ---
History of Present Illness History of Present Illness Date Patient Seen: 07/02/22 Chief complaint: EXCISION SOFT TISSUE MASS RIGHT UPPER BACK Narrative: 56F here for exicsion soft tissue mass from right upper back. No interval changes in health. Please refer to H&P February 2022 for further detail. Patient History Medical History (Updated 06/29/22 @ 15:11 by Lori Ambrocio RN) Polycythemia vera Portal vein thrombosis Family & Social History Family History Father Hypertension Mother Hypertension Gallstones Social History: household members children lives independently Yes Tobacco & Substance use: Smoking Status Never smoker alcohol intake never Substance Use Type does not use Meds Home Medications and Allergies Home Medications Medication Instructions Recorded Confirmed Type hydroxyurea (sickle cell) 1,000 mg 1,000 mg PO DAILY 03/12/22 07/02/22 History tablet warfarin 10 mg tablet 10 mg PO QMWF 03/12/22 06/29/22 History warfarin 7.5 mg tablet 7.5 mg PO QTUTHSASU 03/12/22 07/02/22 History warfarin 5 mg tablet 5 mg PO DAILY 07/02/22 History Allergies Allergy/AdvReac Type Severity Reaction Status Date / Time Sulfa (Sulfonamide Allergy Mild rash Verified 07/02/22 13:30 Antibiotics) fentanyl [FENTANYL] AdvReac Unknown tachy Verified 07/02/22 13:30 midazolam [From VERSED] AdvReac Unknown tachy Verified 07/02/22 13:30 Exam Vital Signs (past 8 hours): - 07/02/22 13:55 Temperature 98.8 F Pulse Rate 98 H Respiratory Rate 12 Blood Pressure 156/91 H Pulse Oximetry 98 Oxygen Delivery Method Room Air Oxygen Delivery Method Room Air Narrative Exam Narrative: Adult woman alert and oriented Back Mass right upper back marked with my initials. Objective Labs Labs: Laboratory Results - last 24 hr 07/02/22 07:01 PT 27.3 H INR 2.4 H Assessment & Plan Assessment and plan (1) Neoplasm of unspecified behavior of bone, soft tissue, and skin: Status: Acute Assessment & Plan narrative: 56F soft tissue mass of upper back here for elective excision. Overview of operation was discussed. Operative risks including bleeding, infection reoccurrence need for further operation dependent on pathology were discussed. She is in agreement with this plan. Time Spent With Patient Critical Care time: I spent a total of [] minutes of critical care time on this patient's care today; this time is exclusive of procedural time.
[2022-07-02] MEDS: CEFAZOLIN 2 GM/100 ML PREMIX 100 ML IV (15:46)
--- NOTE | 2022-07-02 15:58 | SUR.OPER ---
Lateral on a blackman bag, head on pillow, gel axillary roll in place, bottom leg bent with gel pad under knee to foot, upper leg straight and supported with pillows. Upper arm supported by pillows and secured over bottom arm to padded arm board. Safety belt at hip, tape over blanket lower legs.
[2022-07-02] MEDS: LIDOCAINE 1% 20 ML INJ (16:03)
[2022-07-02 16:21] VITALS: BP 156/100; PULSE 84; RESP 16; TEMP 37.3; O2SAT 96
--- NOTE | 2022-07-02 16:21 | P.OP_ITS ---
Operative Date/Time/Diagnoses Date of procedure: 07/02/22 Time of procedure: 16:21 Pre-op diagnosis: Soft tissue mass Post-op diagnosis: same Procedure & Clinicians Procedure: Excision of soft tissue mass 5 cm right upper back Same procedure as scheduled: Yes Indications: Symptomatic soft tissue superficial mass of right upper Surgeon: Amrik Bowman Click Yes if Unassisted: Yes Anesthesia Type: General Operative Notes Findings: 5 cm soft tissue mass consistent with lipoma Specimen(s): other (Soft tissue mass) Estimated Blood Loss (mL): 15 Procedure in detail: Patient brought to the operating room placed supine on the table. Bilateral lower extremity compression devices were applied. Sedation was administered and she was placed into the left lateral decubitus position a beanbag and appropriately padded. She was prepped and draped in sterile fashion. She received 2 g of Ancef prior skin incision. Time-out was performed. Incision over the palpable mass in the right upper back was made. Subcutaneous tissue was divided. The mass was encountered grasped and dissected out circumfere ntially. Hemostasis was achieved. Total of 20 mL of lidocaine 1% were used to infiltrate the tissue. Wound was closed with 3-0 Vicryl and skin with 4-0 Monocryl followed by Dermabond. Complications: none Post-operative Condition: stable Disposition: same day surgery
[2022-07-02 16:26] VITALS: BP 163/109; PULSE 84; RESP 18; O2SAT 98
[2022-07-02 16:31] VITALS: BP 166/98; PULSE 88; RESP 18; O2SAT 98
[2022-07-02 16:37] VITALS: BP 149/95; PULSE 79; RESP 14; TEMP 37.1; O2SAT 99
[2022-07-02 16:43] VITALS: BP 153/89; PULSE 73; RESP 16; O2SAT 98
== END 2022-07-02 16:57 | disposition home or self-care (01) ==
PROVIDERS: PCP Family Medicine; Referring Provider Surgery; Visit Provider Surgery
PROC: (CPT 21931; principal; 2022-07-02 14:00)
DX: D17.1 Benign lipomatous neoplasm of skin and subcutaneous tissue of trunk (principal)
CPT/HCPCS: 21931; 36415; 85610; J0690; J2704

== ENCOUNTER → 2022-07-13 07:10 | Outpatient (CLI) | payer OTHER, SELFPAY ==
[2022-07-13 08:14] LABS: Add Manual Diff / Slide Review NO; Alanine Aminotransferase 63 IU/L (<35); Albumin 4.1 g/dL (3.5-5.0); Albumin Globulin Ratio 1.6 (1.0-2.8); Alkaline Phosphatase 135 U/L (38-126); Aspartate Aminotransferase 57 IU/L (14-36); BUN Creatinine Ratio 34.1 (6-22); Basophils Absolute Auto 100 /uL (0-100); Basophils Percent Auto 1.5 % (0-2); Bilirubin Total 0.9 mg/dL (0.2-1.3); Blood Urea Nitrogen 14 mg/dL (7-17); Calcium 9.3 mg/dL (8.4-10.2); Carbon Dioxide 24 mmol/L (22-32); Chloride 104 mmol/L (98-107); Eosinophils Absolute Auto 100 /uL (0-450); Estimated Glomerular Filt Rate > 60 mL/min (>60); Globulin 2.6 g/dL (1.7-4.1); Glucose 81 mg/dL (70-100); Hematocrit 40.7 % (36-46); Hemoglobin 13.9 g/dL (12.0-16.0); INR 2.1 (0.9-1.3); Lymphocytes Absolute Auto 1200 /uL (1100-4500); Lymphocytes Percent Auto 32.1 % (25-40); Mean Corpuscular HGB Conc 34.1 % (30-36); Mean Corpuscular Hemoglobin 38.2 PG (26-34); Mean Corpuscular Volume 112.3 fL (80-100); Monocytes Absolute Auto 300 /uL (0-900); Monocytes Percent Auto 7.8 % (3-14); Neutrophils Absolute Auto 2000 /uL (1500-7000); Neutrophils Percent Auto 55.6 % (50-75); Platelet Count 378 X10^3/uL (150-400); Potassium 4.3 mmol/L (3.4-5.1); Prothrombin Time 24.6 SECONDS (10.1-12.7); Red Blood Cell Count 3.62 X10^6/uL (4.0-5.2); Red Cell Distribution Width 14.6 % (11.6-14.8); Sodium 137 mmol/L (137-145); Total Protein 6.7 g/dL (6.3-8.2); Uric Acid 2.7 mg/dL (2.5-6.2); White Blood Cell Count 3.7 X10^3/uL (4.5-11.0)
[2022-07-13 08:29] LABS: Macrocytosis 2+
[2022-07-13 08:30] LABS: HEMOLYSIS 16 (0-50); Lactate Dehydrogenase 309 U/L (120-246)
== END ==
PROVIDERS: PCP Family Medicine; Referring Provider Pathology Hematology; Visit Provider Pathology Hematology
DX: D45 Polycythemia vera (principal)
CPT/HCPCS: 80053; 83615; 84550; 85025; 85610

== ENCOUNTER → 2022-08-06 06:52 | Outpatient (CLI) | payer OTHER, SELFPAY ==
[2022-08-06 07:46] LABS: Add Manual Diff / Slide Review NO; Basophils Absolute Auto 0 /uL (0-100); Basophils Percent Auto 1.3 % (0-2); Eosinophils Absolute Auto 100 /uL (0-450); Eosinophils Percent Auto 2.5 % (2-4); Hematocrit 43.2 % (36-46); Hemoglobin 14.4 g/dL (12.0-16.0); Lymphocytes Absolute Auto 1100 /uL (1100-4500); Mean Corpuscular HGB Conc 33.2 % (30-36); Mean Corpuscular Hemoglobin 37.7 PG (26-34); Mean Corpuscular Volume 113.7 fL (80-100); Monocytes Absolute Auto 300 /uL (0-900); Monocytes Percent Auto 8.3 % (3-14); Neutrophils Absolute Auto 2200 /uL (1500-7000); Neutrophils Percent Auto 58.9 % (50-75); Platelet Count 444 X10^3/uL (150-400); Red Cell Distribution Width 14.4 % (11.6-14.8); White Blood Cell Count 3.7 X10^3/uL (4.5-11.0)
[2022-08-06 07:47] LABS: INR 2.6 (0.9-1.3); Prothrombin Time 30.7 SECONDS (10.1-12.7)
[2022-08-06 08:21] LABS: Alanine Aminotransferase 65 IU/L (<35); Alkaline Phosphatase 135 U/L (38-126); Aspartate Aminotransferase 70 IU/L (14-36); Bilirubin Total 1.1 mg/dL (0.2-1.3); Blood Urea Nitrogen 13 mg/dL (7-17); Calcium 9.4 mg/dL (8.4-10.2); Carbon Dioxide 29 mmol/L (22-32); Chloride 104 mmol/L (98-107); Cholesterol 181 mg/dL (140-199); Estimated Glomerular Filt Rate > 60 mL/min (>60); Glucose 76 mg/dL (70-100); HEMOLYSIS < 15 (0-50); Potassium 4.6 mmol/L (3.4-5.1); Sodium 140 mmol/L (137-145); Total Protein 6.9 g/dL (6.3-8.2); Triglycerides 51 mg/dL (35-150)
[2022-08-06 08:32] LABS: HDL Cholesterol 113 mg/dL (40-60); LDL Cholesterol Calculated 58 mg/dL (<100)
[2022-08-06 08:44] LABS: Macrocytosis 2+; Target Cells 1+
[2022-08-06 16:49] LABS: Albumin 4.4 g/dL (3.5-5.0); Albumin Globulin Ratio 1.8 (1.0-2.8); Globulin 2.5 g/dL (1.7-4.1)
== END ==
PROVIDERS: PCP Family Medicine; Referring Provider Pharmacist Pharmacist Clinician (PhC)/ Clinical Pharmacy Specialist; Visit Provider Pharmacist Pharmacist Clinician (PhC)/ Clinical Pharmacy Specialist
DX: Z00.00 Encounter for general adult medical examination without abnormal findings (principal); I81 Portal vein thrombosis; R03.0 Elevated blood-pressure reading, without diagnosis of hypertension; D45 Polycythemia vera
CPT/HCPCS: 36415; 80053; 80061; 84443; 85025; 85610

== ENCOUNTER → 2022-09-08 08:24 | Outpatient (CLI) | payer OTHER, SELFPAY ==
[2022-09-08 09:24] LABS: INR 2.7 (0.9-1.3); Prothrombin Time 30.8 SECONDS (10.1-12.7)
== END ==
PROVIDERS: PCP Family Medicine; Referring Provider Pharmacist Pharmacist Clinician (PhC)/ Clinical Pharmacy Specialist; Visit Provider Pharmacist Pharmacist Clinician (PhC)/ Clinical Pharmacy Specialist
DX: I81 Portal vein thrombosis (principal)
CPT/HCPCS: 36415; 85610

== ENCOUNTER → 2022-11-11 07:22 | Outpatient (CLI) | payer OTHER, SELFPAY ==
--- NOTE | 2022-11-11 | DI.MG.S_ITS ---
BILATERAL DIGITAL SCREENING MAMMOGRAM 3D/2D WITH CAD: 11/11/2022 CLINICAL: Routine screening. Family history of breast cancer. Comparison is made to exams dated: 03/21/2020 mammogram, 06/07/2018 mammogram, and 11/20/2015 mammogram - [facility]. Both breasts are extremely dense, which lowers the sensitivity of mammography (category d />75% glandular tissue). Current study was also evaluated with a Computer Aided Detection (CAD) system. No significant masses, calcifications, or other findings are seen in either breast. There has been no significant interval change. IMPRESSION: NEGATIVE There is no mammographic evidence of malignancy. A 1 year screening mammogram is recommended. Based on Tyrer-Cuzick model (a risk assessment model), the patient's lifetime risk is 29.7% and her 10 year risk is 9.9%. If a patient has an elevated risk, a more comprehensive evaluation should be considered and/or a referral to a genetic counselor. The [place] [employer], [place] [employer], and NCCN Guidelines advise the consideration of Breast MRI as an adjunct to screening mammography in patients whose Lifetime risk to develop breast cancer is 20% or higher. This exam was interpreted at Station ID: [id number]. NOTE: For mammograms, a report in lay terms will be sent to the patient. Approximately 15% of breast malignancies will not be visualized mammographically. In the management of a palpable breast mass, a negative mammogram must not discourage biopsy of a clinically suspicious lesion. Electronically Signed By: Bartolo diaz/sharmila:11/11/2022 12:31:47 letter sent: Normal Exam ACR BI-RADS Category 1: Negative 3341F
== END ==
PROVIDERS: PCP Family Medicine; Referring Provider Family Medicine; Visit Provider Family Medicine
DX: Z12.31 Encounter for screening mammogram for malignant neoplasm of breast (principal); Z80.3 Family history of malignant neoplasm of breast
CPT/HCPCS: 77063; 77067

== ENCOUNTER → 2022-12-03 12:38 | Outpatient (CLI) | payer OTHER, SELFPAY ==
[2022-12-03 13:39] LABS: INR 2.9 (0.9-1.3); Prothrombin Time 33.7 SECONDS (10.1-12.7)
== END ==
PROVIDERS: PCP Family Medicine; Referring Provider Pharmacist Pharmacist Clinician (PhC)/ Clinical Pharmacy Specialist; Visit Provider Pharmacist Pharmacist Clinician (PhC)/ Clinical Pharmacy Specialist
DX: I81 Portal vein thrombosis (principal)
CPT/HCPCS: 36415; 85610

== ENCOUNTER → 2023-01-12 15:26 | Outpatient (CLI) | payer OTHER, SELFPAY ==
[2023-01-12 16:04] LABS: INR 2.7 (0.9-1.3); Prothrombin Time 31.8 SECONDS (10.1-12.7)
== END ==
PROVIDERS: PCP Family Medicine; Referring Provider Pharmacist Pharmacist Clinician (PhC)/ Clinical Pharmacy Specialist; Visit Provider Pharmacist Pharmacist Clinician (PhC)/ Clinical Pharmacy Specialist
DX: I81 Portal vein thrombosis (principal)
CPT/HCPCS: 36415; 85610

== ENCOUNTER → 2023-02-24 12:11 | Outpatient (CLI) | payer OTHER, SELFPAY ==
[2023-02-24 13:09] LABS: Add Manual Diff / Slide Review NO; Basophils Absolute Auto 100 /uL (0-100); Basophils Percent Auto 1.3 % (0-2); Eosinophils Absolute Auto 100 /uL (0-450); Eosinophils Percent Auto 1.8 % (2-4); Hematocrit 41.3 % (36-46); Lymphocytes Absolute Auto 1500 /uL (1100-4500); Lymphocytes Percent Auto 28.8 % (25-40); Mean Corpuscular HGB Conc 33.9 % (30-36); Mean Corpuscular Hemoglobin 38.2 PG (26-34); Mean Corpuscular Volume 112.8 fL (80-100); Monocytes Absolute Auto 400 /uL (0-900); Monocytes Percent Auto 6.7 % (3-14); Neutrophils Absolute Auto 3200 /uL (1500-7000); Neutrophils Percent Auto 61.4 % (50-75); Platelet Count 396 X10^3/uL (150-400); Red Blood Cell Count 3.67 X10^6/uL (4.0-5.2); Red Cell Distribution Width 14.5 % (11.6-14.8); White Blood Cell Count 5.2 X10^3/uL (4.5-11.0)
[2023-02-24 13:31] LABS: INR 2.4 (0.9-1.3); Prothrombin Time 27.7 SECONDS (10.1-12.7)
[2023-02-24 13:49] LABS: Alanine Aminotransferase 79 IU/L (<35); Albumin 4.4 g/dL (3.5-5.0); Albumin Globulin Ratio 1.8 (1.0-2.8); Alkaline Phosphatase 162 U/L (38-126); Aspartate Aminotransferase 80 IU/L (14-36); BUN Creatinine Ratio 32.6 (6-22); Bilirubin Total 1.2 mg/dL (0.2-1.3); Blood Urea Nitrogen 14 mg/dL (7-17); Calcium 9.3 mg/dL (8.4-10.2); Carbon Dioxide 26 mmol/L (22-32); Chloride 104 mmol/L (98-107); Estimated Glomerular Filt Rate > 60 mL/min (>60); Globulin 2.5 g/dL (1.7-4.1); Glucose 77 mg/dL (70-100); HEMOLYSIS 21 (0-50); Lactate Dehydrogenase 326 U/L (120-246); Potassium 4.4 mmol/L (3.4-5.1); Sodium 137 mmol/L (137-145); Total Protein 6.9 g/dL (6.3-8.2); Uric Acid 2.4 mg/dL (2.5-6.2)
[2023-02-24 13:59] LABS: Anisocytosis 1+; Macrocytosis 3+
== END ==
PROVIDERS: PCP Family Medicine; Referring Provider Pharmacist Pharmacist Clinician (PhC)/ Clinical Pharmacy Specialist; Visit Provider Pharmacist Pharmacist Clinician (PhC)/ Clinical Pharmacy Specialist
DX: I81 Portal vein thrombosis (principal); D45 Polycythemia vera
CPT/HCPCS: 36415; 80053; 83615; 84550; 85025; 85610

== ENCOUNTER → 2023-03-22 17:31 | Outpatient (CLI) | payer OTHER, SELFPAY ==
[2023-03-22 21:42] LABS: Urine N gonorrhoeae NOT DETECTED
[2023-03-22 21:47] LABS: Urine Chlamydia NOT DETECTED
== END ==
PROVIDERS: PCP Family Medicine; Visit Provider Physician Assistant
DX: R30.0 Dysuria (principal)
CPT/HCPCS: 87077; 87086; 87186; 87210; 87491; 87591

== ENCOUNTER → 2023-04-15 15:50 | Outpatient (CLI) | payer OTHER, SELFPAY ==
[2023-04-15 16:33] LABS: INR 3.1 (0.9-1.3); Prothrombin Time 36.4 SECONDS (10.1-12.7)
== END ==
PROVIDERS: PCP Family Medicine; Referring Provider Pharmacist; Visit Provider Pharmacist
DX: I81 Portal vein thrombosis (principal)
CPT/HCPCS: 36415; 85610

== ENCOUNTER → 2023-05-12 08:05 | Outpatient (CLI) | payer OTHER, SELFPAY ==
[2023-05-12 10:03] LABS: INR 2.5 (0.9-1.3); Prothrombin Time 29.4 SECONDS (10.1-12.7)
[2023-05-12 10:16] LABS: BUN Creatinine Ratio 30.8 (6-22); Blood Urea Nitrogen 16 mg/dL (7-17); Carbon Dioxide 26 mmol/L (22-32); Chloride 105 mmol/L (98-107); Estimated Glomerular Filt Rate > 60 mL/min (>60); Glucose 113 mg/dL (70-100); HEMOLYSIS < 15 (0-50); Potassium 4.6 mmol/L (3.4-5.1); Sodium 138 mmol/L (137-145)
== END ==
PROVIDERS: PCP Family Medicine; Referring Provider Internal Medicine Hematology & Oncology; Visit Provider Internal Medicine Hematology & Oncology
DX: I81 Portal vein thrombosis (principal); D45 Polycythemia vera
CPT/HCPCS: 36415; 80048; 85610

== ENCOUNTER → 2023-05-21 12:28 | Outpatient (CLI) | payer OTHER, SELFPAY | PROVIDERS: PCP Family Medicine; Visit Provider Nurse Practitioner Family | DX: R35.0 Frequency of micturition (principal) | CPT/HCPCS: 87086 ==

== ENCOUNTER → 2023-06-08 13:15 | Outpatient (CLI) | payer OTHER, SELFPAY ==
[2023-06-08 15:37] LABS: INR 3.2 (0.9-1.3); Prothrombin Time 36.7 SECONDS (9.4-12.5)
== END ==
PROVIDERS: PCP Family Medicine; Referring Provider Pharmacist; Visit Provider Pharmacist
DX: I81 Portal vein thrombosis (principal)
CPT/HCPCS: 36415; 85610

== ENCOUNTER → 2023-06-21 06:31 | Outpatient (CLI) | payer OTHER, SELFPAY ==
[2023-06-21 08:15] LABS: INR 2.9 (0.9-1.3); Prothrombin Time 33.5 SECONDS (9.4-12.5)
== END ==
PROVIDERS: PCP Family Medicine; Referring Provider Pharmacist; Visit Provider Pharmacist
DX: I81 Portal vein thrombosis (principal)
CPT/HCPCS: 36415; 85610

== ENCOUNTER → 2023-07-07 10:35 | Outpatient (CLI) | payer OTHER, SELFPAY | PROVIDERS: PCP Family Medicine; Referring Provider Pharmacist; Visit Provider Pharmacist | DX: I81 Portal vein thrombosis (principal) | CPT/HCPCS: 36415; 85610 ==

== ENCOUNTER → 2023-07-19 12:13 | Outpatient (CLI) | payer OTHER, SELFPAY ==
[2023-07-19 12:54] LABS: INR 2.6 (0.9-1.3); Prothrombin Time 30.4 SECONDS (9.4-12.5)
== END ==
LOC: LAB 12:18
PROVIDERS: PCP Family Medicine; Referring Provider Pharmacist; Visit Provider Pharmacist
DX: I81 Portal vein thrombosis (principal)
CPT/HCPCS: 36415; 85610

== ENCOUNTER → 2023-08-17 08:20 | Outpatient (CLI) | payer OTHER, SELFPAY ==
[2023-08-17 08:46] LABS: Add Manual Diff / Slide Review NO; Basophils Absolute Auto 0 /uL (0-100); Basophils Percent Auto 0.5 % (0-2); Eosinophils Absolute Auto 100 /uL (0-450); Eosinophils Percent Auto 2.3 % (2-4); Hematocrit 42.4 % (36-46); Hemoglobin 14.3 g/dL (12.0-16.0); Lymphocytes Absolute Auto 1200 /uL (1100-4500); Lymphocytes Percent Auto 31.7 % (25-40); Mean Corpuscular HGB Conc 33.8 % (30-36); Mean Corpuscular Hemoglobin 37.9 PG (26-34); Mean Corpuscular Volume 112.3 fL (80-100); Monocytes Absolute Auto 300 /uL (0-900); Monocytes Percent Auto 6.9 % (3-14); Neutrophils Absolute Auto 2300 /uL (1500-7000); Neutrophils Percent Auto 58.6 % (50-75); Platelet Count 445 X10^3/uL (150-400); Red Blood Cell Count 3.77 X10^6/uL (4.0-5.2); Red Cell Distribution Width 15.1 % (11.6-14.8); White Blood Cell Count 3.9 X10^3/uL (4.5-11.0)
[2023-08-17 08:50] LABS: INR 2.8 (0.9-1.3); Prothrombin Time 32.4 SECONDS (9.4-12.5)
[2023-08-17 08:59] LABS: Alanine Aminotransferase 61 IU/L (<35); Albumin 4.3 g/dL (3.5-5.0); Albumin Globulin Ratio 1.6 (1.0-2.8); Alkaline Phosphatase 127 U/L (38-126); Aspartate Aminotransferase 61 IU/L (14-36); BUN Creatinine Ratio 30.4 (6-22); Bilirubin Total 0.9 mg/dL (0.2-1.3); Blood Urea Nitrogen 14 mg/dL (7-17); Calcium 9.8 mg/dL (8.4-10.2); Carbon Dioxide 27 mmol/L (22-32); Chloride 106 mmol/L (98-107); Estimated Glomerular Filt Rate > 60 mL/min (>60); Globulin 2.7 g/dL (1.7-4.1); Glucose 106 mg/dL (70-100); HEMOLYSIS < 15 (0-50); Lactate Dehydrogenase 297 U/L (120-246); Sodium 139 mmol/L (137-145); Uric Acid 2.6 mg/dL (2.5-6.2)
[2023-08-17 09:12] LABS: Macrocytosis 2+
== END ==
LOC: LAB 08:23
PROVIDERS: PCP Family Medicine; Referring Provider Pharmacist; Visit Provider Internal Medicine Hematology & Oncology
DX: D45 Polycythemia vera (principal); I81 Portal vein thrombosis
CPT/HCPCS: 36415; 80053; 83615; 84550; 85025; 85610

== ENCOUNTER → 2023-09-17 07:19 | Outpatient (CLI) | payer OTHER, SELFPAY ==
[2023-09-17 08:12] LABS: COVID-19 CEPHEID 4-PLEX PCR Negative (Negative); Influenza A - CEPHEID Flu A NEGATIVE (NEGATIVE); Influenza B - CEPHEID Flu B NEGATIVE (NEGATIVE); Respiratory Syncytial Virus Negative (Negative)
== END ==
PROVIDERS: PCP Family Medicine; Visit Provider Physician Assistant
DX: R05.9 Cough, unspecified (principal)
CPT/HCPCS: 0241U; 36415; 85610

== ENCOUNTER → 2023-09-17 | Outpatient (CLI) | payer OTHER, SELFPAY | LOC: LAB 07:57 | PROVIDERS: PCP Family Medicine; Referring Provider Pharmacist; Visit Provider Pharmacist | DX: I81 Portal vein thrombosis (principal) | CPT/HCPCS: 36415; 85610 ==

== ENCOUNTER → 2023-10-11 10:37 | Outpatient (CLI) | payer OTHER, SELFPAY ==
[2023-10-11 11:50] LABS: INR 2.4 (0.9-1.3); Prothrombin Time 28.3 SECONDS (9.4-12.5)
== END ==
PROVIDERS: PCP Family Medicine; Referring Provider Pharmacist; Visit Provider Pharmacist
DX: I81 Portal vein thrombosis (principal)
CPT/HCPCS: 36415; 85610

== ENCOUNTER → 2023-12-01 08:00 | Outpatient (CLI) | payer OTHER, SELFPAY ==
[2023-12-01 09:51] LABS: INR 2.3 (0.9-1.3); Prothrombin Time 26.3 SECONDS (9.4-12.5)
== END ==
PROVIDERS: PCP Family Medicine; Referring Provider Pharmacist; Visit Provider Pharmacist
DX: I81 Portal vein thrombosis (principal)
CPT/HCPCS: 36415; 85610

== ENCOUNTER → 2024-01-05 08:25 | Outpatient (CLI) | payer OTHER, SELFPAY ==
[2024-01-05 09:14] LABS: INR 2.4 (0.9-1.3); Prothrombin Time 28.3 SECONDS (9.4-12.5)
== END ==
PROVIDERS: PCP Family Medicine; Referring Provider Pharmacist; Visit Provider Pharmacist
DX: I81 Portal vein thrombosis (principal)
CPT/HCPCS: 36415; 85610

== ENCOUNTER → 2024-02-08 15:18 | Outpatient (CLI) | payer OTHER, SELFPAY ==
[2024-02-08 16:24] LABS: Add Manual Diff / Slide Review NO; Basophils Absolute Auto 100 /uL (0-100); Basophils Percent Auto 0.9 % (0-2); Eosinophils Absolute Auto 100 /uL (0-450); Hematocrit 43.4 % (36-46); Hemoglobin 14.5 g/dL (12.0-16.0); Lymphocytes Absolute Auto 1800 /uL (1100-4500); Lymphocytes Percent Auto 29.1 % (25-40); Mean Corpuscular HGB Conc 33.5 % (30-36); Mean Corpuscular Hemoglobin 38.1 PG (26-34); Mean Corpuscular Volume 113.8 fL (80-100); Monocytes Absolute Auto 300 /uL (0-900); Monocytes Percent Auto 5.4 % (3-14); Neutrophils Absolute Auto 3800 /uL (1500-7000); Neutrophils Percent Auto 62.6 % (50-75); Platelet Count 448 X10^3/uL (150-400); Red Blood Cell Count 3.82 X10^6/uL (4.0-5.2); Red Cell Distribution Width 13.4 % (11.6-14.8)
[2024-02-08 16:43] LABS: INR 2.8 (0.9-1.3); Prothrombin Time 32.9 SECONDS (9.4-12.5)
[2024-02-08 16:58] LABS: Alanine Aminotransferase 63 IU/L (<35); Albumin 4.5 g/dL (3.5-5.0); Alkaline Phosphatase 141 U/L (38-126); Aspartate Aminotransferase 68 IU/L (14-36); BUN Creatinine Ratio 26.8 (6-22); Blood Urea Nitrogen 15 mg/dL (7-17); Calcium 9.7 mg/dL (8.4-10.2); Carbon Dioxide 27 mmol/L (22-32); Chloride 104 mmol/L (98-107); Estimated Glomerular Filt Rate > 60 mL/min (>60); Globulin 2.3 g/dL (1.7-4.1); Glucose 129 mg/dL (70-100); HEMOLYSIS < 15 (0-50); Lactate Dehydrogenase 322 U/L (120-246); Potassium 4.5 mmol/L (3.4-5.1); Sodium 138 mmol/L (137-145); Total Protein 6.8 g/dL (6.3-8.2); Uric Acid 3.2 mg/dL (2.5-6.2)
== END ==
PROVIDERS: PCP Family Medicine; Visit Provider Pharmacist
DX: D45 Polycythemia vera (principal)
CPT/HCPCS: 36415; 80053; 83615; 84550; 85025; 85610

== ENCOUNTER → 2024-02-15 11:27 | Outpatient (CLI) | payer OTHER, SELFPAY ==
--- NOTE | 2024-02-15 11:28 | DI.RAD.S_ITS ---
PROCEDURE: XR DEXA AXIAL SKELETON INDICATIONS: OSTEOPENIA OF MULTIPLE SITES COMPARISON: None. FINDINGS: Lumbar Spine: Bone mineral density 0.854 g/cm2, T score negative from -1.8 Left Hip: Bone mineral density 0.773 g/cm2, T score -1.4. Left Femoral Neck: Bone mineral density 0.615 for g/cm2, T score -2.1 Right Hip: Bone mineral density 0.726 g/cm2, T score -1.8 Right Femoral Neck: Bone mineral density 0.569 g/cm2, T score -2.5 Fracture Risk Calculation (when applicable): 10-year fracture risk of a major osteoporotic fracture 8.9% and of a hip fracture 1.6%. (T score greater or equal to -1.0 to: NORMAL) (T score from -1.1 to -2.4: OSTEOPENIA) (T score less than or equal to -2.5: OSTEOPOROSIS) IMPRESSION: Osteoporosis of the right femoral neck. Osteopenia of the lumbar spine, left hip, left femoral neck and right hip. Follow-up guidelines as follows: Osteoporosis: Consider a repeat DEXA and Vertebral Fracture Assessment (VFA) exam in 2 years or sooner if medically necessary, to reassess this patient's status. Osteopenia: Consider a repeat DEXA in 2-3 years to reassess this patient's status, or if there is a new clinical indication. Normal: Consider a repeat DEXA in 5 years or sooner, or if there is a new clinical indication. All treatment decisions require clinical judgment and consideration of individual patient factors, including patient preferences, comorbidities, previous drug use, risk factors not captured in the FRAX model (e.g., frailty, falls, vitamin D deficiency, increased bone turnover, interval significant decline in bone density ) and possible under- or over-estimation of fracture risk by FRAX. In addition, the NOF Guide recommends that FDA-approved medical therapies be considered in postmenopausal women and men age >= 50 years with a: * Hip or vertebral (clinical or morphometric) fracture * T-score of <=-2.5 at the spine or hip * Ten-year fracture probability by FRAX of >= 3% for hip fracture or >=20% for major osteoporotic fracture. People with diagnosed cases of osteoporosis or at high risk for fracture should have regular bone mineral density tests. For patients eligible for Medicare, routine testing is allowed once every 2 years. The testing frequency can be increased to one year for patients who have rapidly progressing disease, those who are receiving or discontinuing medical therapy to restore bone mass, or have additional risk factors. Dictated by: Alfa Sweeney M.D. on 02/15/2024 at 13:24 Approved by: Alfa Sweeney M.D. on 02/15/2024 at 13:28
== END ==
PROVIDERS: PCP Family Medicine; Referring Provider Family Medicine; Visit Provider Family Medicine
DX: M81.0 Age-related osteoporosis without current pathological fracture (principal)
CPT/HCPCS: 77080

== ENCOUNTER → 2024-03-01 07:28 | Outpatient (CLI) | payer OTHER, SELFPAY | PROVIDERS: PCP Family Medicine; Referring Provider Nurse Practitioner Family; Visit Provider Nurse Practitioner Family | DX: R30.0 Dysuria (principal) | CPT/HCPCS: 87077; 87086 ==

== ENCOUNTER → 2024-03-16 10:23 | Outpatient (CLI) | payer OTHER, SELFPAY ==
[2024-03-16 12:54] LABS: INR 2.3 (0.9-1.3); Prothrombin Time 26.1 SECONDS (9.4-12.5)
[2024-03-16 13:21] LABS: Alanine Aminotransferase 65 IU/L (<35); Albumin 4.4 g/dL (3.5-5.0); Albumin Globulin Ratio 1.5 (1.0-2.8); Alkaline Phosphatase 142 U/L (38-126); Aspartate Aminotransferase 68 IU/L (14-36); BUN Creatinine Ratio 29.5 (6-22); Bilirubin Total 1.3 mg/dL (0.2-1.3); Blood Urea Nitrogen 13 mg/dL (7-17); Calcium 9.4 mg/dL (8.4-10.2); Carbon Dioxide 27 mmol/L (22-32); Chloride 104 mmol/L (98-107); Estimated Glomerular Filt Rate > 60 mL/min (>60); Globulin 2.9 g/dL (1.7-4.1); Glucose 70 mg/dL (70-100); HEMOLYSIS < 15 (0-50); Magnesium 2.2 mg/dL (1.6-2.3); Phosphorous 3.3 mg/dL (2.5-4.5); Sodium 137 mmol/L (137-145); Total Protein 7.3 g/dL (6.3-8.2)
[2024-03-16 15:21] LABS: Vitamin D 25 Hydroxy (D3) 37.5 ng/mL (30.0-100.0)
[2024-03-17 09:11] LABS: Parathyroid Hormone Int 37 pg/mL (15-65)
== END ==
PROVIDERS: PCP Family Medicine; Referring Provider Pharmacist; Visit Provider Pharmacist
DX: M81.8 Other osteoporosis without current pathological fracture (principal); I81 Portal vein thrombosis
CPT/HCPCS: 36415; 80053; 82306; 83735; 83970; 84100; 84443; 85610

== ENCOUNTER → 2024-04-28 09:17 | Outpatient (CLI) | payer OTHER, SELFPAY ==
[2024-04-28 12:49] LABS: INR 1.5 (0.9-1.3); Prothrombin Time 17.6 SECONDS (9.4-12.5)
== END ==
PROVIDERS: PCP Family Medicine; Referring Provider Pharmacist; Visit Provider Pharmacist
DX: I81 Portal vein thrombosis (principal)
CPT/HCPCS: 36415; 85610

== ENCOUNTER → 2024-05-01 16:01 | Outpatient (CLI) | payer OTHER, SELFPAY ==
--- NOTE | 2024-05-14 16:53 | DIET.OUTPTC ---
Dietary Outpatient Consultation Note Consultation Date: 05/01/2024 Assessment: 58 y F referred to dietitian for osteopenia. Pt is wanting to improve nutritional intake to support bone health and prevent osteoporosis. 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 Hx of anorexia as a child. Would like to know appropriate amount of protein to consume. Recently bought vitamin D supplements. Diet recall: B-2 eggs and 1 ww bread L-1/3 cup cheese ? nuts, mixed green salad Dinner is chicken wrap w/ 4oz chicken 2 glasses milk Daily estimated 800-1000 mg calcium daily, 50-60 g protein Ht: 5 ft 8 in Wt: 136 lb and 2 oz BMI 20.7 UBW 131 lb on 09/17/23 Activity: 3x/wk walk with weighted vest, 3 x wk weight workout 30 minutes - does videos that emphasizes activities to support bone health Nutrition diagnosis: Inadequate calcium intake r/t nutrition related knowledge deficit aeb diet recall meeting only ~75% of BIOMETRICIAN of calcium Nutrition interventions: Discussed the following: -Calcium and vit D food sources -Calcium and vit D supplements -Mediterranean style eating pattern -Protein needs -Label reading -Brainstormed and discussed barriers to food intake during the day Goals: 1. 1 extra calcium source daily - pt interested in prashant or yogurt as day time snack (snack will add 6-14 g protein/day) 2. Consistent lunch + snack 3. 5+ serving fruits and vegetable/day in line with Mediterranean style eating and support adequate fiber intake EER: 1200 mg calcium, 50-60 g (.8-1g/kg per age), 25 g fiber/day F/u as needed. Provided information on osteoporosis class available at . Electronically Signed by: Corrine Grimaldo 05/14/24 16:53 Clinical Dietitian [id number] [place] [address]
== END ==
PROVIDERS: PCP Family Medicine; Referring Provider Family Medicine
DX: M85.80 Other specified disorders of bone density and structure, unspecified site (principal); Z68.20 Body mass index [BMI] 20.0-20.9, adult; Z71.3 Dietary counseling and surveillance
CPT/HCPCS: 97802

== ENCOUNTER → 2024-05-10 07:56 | Outpatient (CLI) | payer OTHER, SELFPAY ==
[2024-05-10 08:35] LABS: INR 2.3 (0.9-1.3); Prothrombin Time 26.5 SECONDS (9.4-12.5)
== END ==
PROVIDERS: PCP Family Medicine; Referring Provider Pharmacist; Visit Provider Pharmacist
DX: I81 Portal vein thrombosis (principal)
CPT/HCPCS: 36415; 85610

== ENCOUNTER → 2024-05-29 07:49 | Outpatient (CLI) | payer OTHER, SELFPAY ==
[2024-05-29 08:59] LABS: Add Manual Diff / Slide Review NO; Basophils Absolute Auto 0 /uL (0-100); Eosinophils Absolute Auto 100 /uL (0-450); Eosinophils Percent Auto 1.9 % (2-4); Hematocrit 42.2 % (36-46); Hemoglobin 14.4 g/dL (12.0-16.0); Lymphocytes Absolute Auto 1300 /uL (1100-4500); Mean Corpuscular HGB Conc 34.1 % (30-36); Mean Corpuscular Volume 111.3 fL (80-100); Monocytes Absolute Auto 400 /uL (0-900); Monocytes Percent Auto 8.6 % (3-14); Neutrophils Absolute Auto 3100 /uL (1500-7000); Neutrophils Percent Auto 62.5 % (50-75); Platelet Count 473 X10^3/uL (150-400); Red Blood Cell Count 3.79 X10^6/uL (4.0-5.2); Red Cell Distribution Width 15.3 % (11.6-14.8); White Blood Cell Count 4.9 X10^3/uL (4.5-11.0)
[2024-05-29 09:37] LABS: Alanine Aminotransferase 55 IU/L (<35); Albumin 4.1 g/dL (3.5-5.0); Albumin Globulin Ratio 1.8 (1.0-2.8); Alkaline Phosphatase 133 U/L (38-126); Aspartate Aminotransferase 62 IU/L (14-36); BUN Creatinine Ratio 31.9 (6-22); Bilirubin Total 0.7 mg/dL (0.2-1.3); Blood Urea Nitrogen 15 mg/dL (7-17); Calcium 10.1 mg/dL (8.4-10.2); Carbon Dioxide 28 mmol/L (22-32); Chloride 106 mmol/L (98-107); Estimated Glomerular Filt Rate > 60 mL/min (>60); Globulin 2.3 g/dL (1.7-4.1); Glucose 66 mg/dL (70-100); HEMOLYSIS < 15 (0-50); Lactate Dehydrogenase 330 U/L (120-246); Potassium 4.7 mmol/L (3.4-5.1); Sodium 139 mmol/L (137-145); Total Protein 6.4 g/dL (6.3-8.2); Uric Acid 2.9 mg/dL (2.5-6.2)
[2024-05-29 09:40] LABS: Macrocytosis 2+
== END ==
PROVIDERS: PCP Family Medicine; Referring Provider Internal Medicine Hematology & Oncology; Visit Provider Internal Medicine Hematology & Oncology
DX: I81 Portal vein thrombosis (principal); D45 Polycythemia vera
CPT/HCPCS: 36415; 80053; 83615; 84550; 85025; 85610

== ENCOUNTER → 2024-06-21 16:59 | Outpatient (CLI) | payer OTHER, SELFPAY | PROVIDERS: PCP Family Medicine; Visit Provider Student in an Organized Health Care Education/Training Program | DX: R30.0 Dysuria (principal) | CPT/HCPCS: 87086; 87147 ==

== ENCOUNTER → 2024-06-26 07:24 | Outpatient (CLI) | payer OTHER, SELFPAY ==
[2024-06-26 08:17] LABS: INR 2.5 (0.9-1.3); Prothrombin Time 28.1 SECONDS (9.4-12.5)
== END ==
PROVIDERS: PCP Family Medicine; Referring Provider Pharmacist; Visit Provider Pharmacist
DX: I81 Portal vein thrombosis (principal)
CPT/HCPCS: 36415; 85610

== ENCOUNTER → 2024-07-23 07:45 | Outpatient (CLI) | payer OTHER, SELFPAY ==
[2024-07-23 09:23] LABS: INR 2.7 (0.9-1.3); Prothrombin Time 29.9 SECONDS (9.4-12.5)
== END ==
LOC: LAB 07:46
PROVIDERS: PCP Family Medicine; Referring Provider Pharmacist; Visit Provider Pharmacist
DX: I81 Portal vein thrombosis (principal)
CPT/HCPCS: 36415; 85610

== ENCOUNTER → 2024-08-14 07:18 | Outpatient (CLI) | payer OTHER, SELFPAY | PROVIDERS: PCP Family Medicine; Visit Provider Physician Assistant Surgical | DX: N39.0 Urinary tract infection, site not specified (principal) | CPT/HCPCS: 87086; 87147 ==

== ENCOUNTER → 2024-08-30 07:26 | Outpatient (CLI) | payer OTHER, SELFPAY ==
[2024-08-30 08:18] LABS: INR 2.3 (0.9-1.3); Prothrombin Time 25.2 SECONDS (9.4-12.5)
[2024-08-30 08:35] LABS: Alanine Aminotransferase 92 IU/L (<35); Albumin 4.5 g/dL (3.5-5.0); Albumin Globulin Ratio 1.8 (1.0-2.8); Alkaline Phosphatase 145 U/L (38-126); Aspartate Aminotransferase 96 IU/L (14-36); BUN Creatinine Ratio 30.2 (6-22); Bilirubin Total 1.1 mg/dL (0.2-1.3); Blood Urea Nitrogen 16 mg/dL (7-17); Calcium 10.2 mg/dL (8.4-10.2); Carbon Dioxide 29 mmol/L (22-32); Chloride 104 mmol/L (98-107); Estimated Glomerular Filt Rate > 60 mL/min (>60); Globulin 2.5 g/dL (1.7-4.1); Glucose 100 mg/dL (70-100); HEMOLYSIS < 15 (0-50); Lactate Dehydrogenase 380 U/L (120-246); Potassium 4.6 mmol/L (3.4-5.1); Sodium 137 mmol/L (137-145); Uric Acid 2.5 mg/dL (2.5-6.2)
[2024-08-30 08:47] LABS: Add Manual Diff / Slide Review NO; Basophils Absolute Auto 100 /uL (0-100); Basophils Percent Auto 0.9 % (0-2); Eosinophils Absolute Auto 100 /uL (0-450); Hematocrit 44.8 % (36-46); Hemoglobin 15.1 g/dL (12.0-16.0); Lymphocytes Absolute Auto 1400 /uL (1100-4500); Lymphocytes Percent Auto 24.8 % (25-40); Mean Corpuscular HGB Conc 33.8 % (30-36); Mean Corpuscular Hemoglobin 37.9 PG (26-34); Mean Corpuscular Volume 112.1 fL (80-100); Monocytes Absolute Auto 400 /uL (0-900); Monocytes Percent Auto 6.3 % (3-14); Neutrophils Absolute Auto 3700 /uL (1500-7000); Platelet Count 575 X10^3/uL (150-400); Red Cell Distribution Width 14.1 % (11.6-14.8); White Blood Cell Count 5.6 X10^3/uL (4.5-11.0)
[2024-08-30 10:53] LABS: Macrocytosis 1+
== END ==
PROVIDERS: PCP Family Medicine; Referring Provider Internal Medicine Hematology & Oncology; Visit Provider Internal Medicine Hematology & Oncology
DX: D45 Polycythemia vera (principal); I81 Portal vein thrombosis
CPT/HCPCS: 36415; 80053; 83615; 84550; 85025; 85610

== ENCOUNTER → 2024-09-17 14:29 | Outpatient (CLI) | payer OTHER, SELFPAY | PROVIDERS: PCP Family Medicine; Visit Provider Registered Nurse | DX: R30.0 Dysuria (principal) | CPT/HCPCS: 87077; 87086; 87147 ==

== ENCOUNTER → 2024-09-26 10:06 | Outpatient (CLI) | payer OTHER, SELFPAY | PROVIDERS: PCP Family Medicine; Visit Provider Family Medicine | DX: N39.0 Urinary tract infection, site not specified (principal) | CPT/HCPCS: 87086 ==

== ENCOUNTER → 2024-10-10 08:14 | Outpatient (CLI) | payer OTHER, SELFPAY ==
[2024-10-10 09:24] LABS: Prothrombin Time 33.2 SECONDS (9.4-12.5)
== END ==
PROVIDERS: PCP Family Medicine; Referring Provider Pharmacist; Visit Provider Pharmacist
DX: I81 Portal vein thrombosis (principal)
CPT/HCPCS: 36415; 85610

== ENCOUNTER → 2024-11-05 12:12 | Outpatient (CLI) | payer OTHER, SELFPAY ==
[2024-11-05 13:12] LABS: Add Manual Diff / Slide Review NO; Basophils Absolute Auto 100 /uL (0-100); Basophils Percent Auto 0.9 % (0-2); Eosinophils Absolute Auto 100 /uL (0-450); Eosinophils Percent Auto 1.6 % (2-4); Hematocrit 42.1 % (36-46); Hemoglobin 14.4 g/dL (12.0-16.0); Lymphocytes Absolute Auto 2000 /uL (1100-4500); Lymphocytes Percent Auto 32.7 % (25-40); Mean Corpuscular HGB Conc 34.1 % (30-36); Mean Corpuscular Hemoglobin 37.4 PG (26-34); Mean Corpuscular Volume 109.8 fL (80-100); Monocytes Absolute Auto 500 /uL (0-900); Monocytes Percent Auto 7.6 % (3-14); Neutrophils Absolute Auto 3500 /uL (1500-7000); Neutrophils Percent Auto 57.2 % (50-75); Platelet Count 556 X10^3/uL (150-400); Red Blood Cell Count 3.84 X10^6/uL (4.0-5.2); Red Cell Distribution Width 14.9 % (11.6-14.8); White Blood Cell Count 6.1 X10^3/uL (4.5-11.0)
[2024-11-05 13:18] LABS: INR 2.2 (0.9-1.3); Prothrombin Time 24.6 SECONDS (9.4-12.5)
[2024-11-05 13:24] LABS: Alanine Aminotransferase 55 IU/L (<35); Albumin 4.4 g/dL (3.5-5.0); Albumin Globulin Ratio 1.9 (1.0-2.8); Alkaline Phosphatase 150 U/L (38-126); Aspartate Aminotransferase 64 IU/L (14-36); Bilirubin Total 1.2 mg/dL (0.2-1.3); Blood Urea Nitrogen 17 mg/dL (7-17); Calcium 9.6 mg/dL (8.4-10.2); Carbon Dioxide 25 mmol/L (22-32); Chloride 105 mmol/L (98-107); Estimated Glomerular Filt Rate > 60 mL/min (>60); Globulin 2.3 g/dL (1.7-4.1); Glucose 82 mg/dL (70-100); HEMOLYSIS < 15 (0-50); Lactate Dehydrogenase 369 U/L (120-246); Potassium 4.8 mmol/L (3.4-5.1); Sodium 137 mmol/L (137-145); Total Protein 6.7 g/dL (6.3-8.2); Uric Acid 2.8 mg/dL (2.5-6.2)
== END ==
PROVIDERS: PCP Family Medicine; Referring Provider Internal Medicine Hematology & Oncology; Visit Provider Internal Medicine Hematology & Oncology
DX: I81 Portal vein thrombosis (principal); D45 Polycythemia vera
CPT/HCPCS: 36415; 80053; 83615; 84550; 85025; 85610

== ENCOUNTER → 2024-12-07 12:25 | Outpatient (CLI) | payer OTHER, SELFPAY ==
[2024-12-07 13:17] LABS: INR 2.1 (0.9-1.3); Prothrombin Time 23.2 SECONDS (9.4-12.5)
== END ==
PROVIDERS: PCP Family Medicine; Referring Provider Pharmacist; Visit Provider Pharmacist
DX: I81 Portal vein thrombosis (principal)
CPT/HCPCS: 36415; 85610

== ENCOUNTER → 2025-01-04 07:27 | Outpatient (CLI) | payer OTHER, SELFPAY ==
[2025-01-04 08:07] LABS: Basophils Absolute Auto 100 /uL (0-100); Basophils Percent Auto 1.5 % (0-2); Eosinophils Absolute Auto 100 /uL (0-450); Eosinophils Percent Auto 3.1 % (2-4); Hematocrit 44.6 % (36-46); Hemoglobin 15.3 g/dL (12.0-16.0); Lymphocytes Absolute Auto 1300 /uL (1100-4500); Lymphocytes Percent Auto 31.3 % (25-40); Mean Corpuscular HGB Conc 34.2 % (30-36); Mean Corpuscular Hemoglobin 37.9 PG (26-34); Mean Corpuscular Volume 110.7 fL (80-100); Monocytes Absolute Auto 300 /uL (0-900); Monocytes Percent Auto 7.3 % (3-14); Neutrophils Absolute Auto 2400 /uL (1500-7000); Neutrophils Percent Auto 56.8 % (50-75); Platelet Count 465 X10^3/uL (150-400); Red Blood Cell Count 4.03 X10^6/uL (4.0-5.2); Red Cell Distribution Width 14.8 % (11.6-14.8); White Blood Cell Count 4.3 X10^3/uL (4.5-11.0)
[2025-01-04 08:11] LABS: Add Manual Diff / Slide Review SLIDE REVIEW
[2025-01-04 08:13] LABS: INR 2.2 (0.9-1.3); Prothrombin Time 24.8 SECONDS (9.4-12.5)
[2025-01-04 08:22] LABS: Alanine Aminotransferase 68 IU/L (<35); Albumin 4.5 g/dL (3.5-5.0); Albumin Globulin Ratio 2.1 (1.0-2.8); Alkaline Phosphatase 122 U/L (38-126); Aspartate Aminotransferase 70 IU/L (14-36); BUN Creatinine Ratio 28.6 (6-22); Bilirubin Total 1.3 mg/dL (0.2-1.3); Blood Urea Nitrogen 14 mg/dL (7-17); Calcium 10.1 mg/dL (8.4-10.2); Carbon Dioxide 25 mmol/L (22-32); Chloride 106 mmol/L (98-107); Estimated Glomerular Filt Rate > 60 mL/min (>60); Globulin 2.1 g/dL (1.7-4.1); Glucose 82 mg/dL (70-99); HEMOLYSIS < 15 (0-50); Lactate Dehydrogenase 343 U/L (120-246); Potassium 4.3 mmol/L (3.4-5.1); Sodium 140 mmol/L (137-145); Total Protein 6.6 g/dL (6.3-8.2); Uric Acid 3.6 mg/dL (2.5-6.2)
[2025-01-04 08:28] LABS: Macrocytosis 1+
== END ==
PROVIDERS: PCP Family Medicine; Referring Provider Internal Medicine Hematology & Oncology; Visit Provider Internal Medicine Hematology & Oncology
DX: D45 Polycythemia vera (principal); I81 Portal vein thrombosis
CPT/HCPCS: 36415; 80053; 83615; 84550; 85025; 85610

== ENCOUNTER → 2025-05-01 13:01 | Outpatient (CLI) | payer OTHER, SELFPAY ==
[2025-05-01 14:51] LABS: Add Manual Diff / Slide Review NO; Hematocrit 40.8 % (36-46); Hemoglobin 14.2 g/dL (12.0-16.0); Lymphocytes Absolute Auto 1700 /uL (1100-4500); Mean Corpuscular HGB Conc 34.7 % (30-36); Mean Corpuscular Hemoglobin 38.9 PG (26-34); Mean Corpuscular Volume 112.2 fL (80-100); Platelet Count 413 X10^3/uL (150-400)
[2025-05-01 15:13] LABS: Anisocytosis 1+; Macrocytosis 2+
[2025-05-01 15:25] LABS: Alanine Aminotransferase 70 IU/L (<35); Albumin 4.3 g/dL (3.5-5.0); Albumin Globulin Ratio 1.9 (1.0-2.8); Alkaline Phosphatase 152 U/L (38-126); Blood Urea Nitrogen 17 mg/dL (7-17); Calcium 9.6 mg/dL (8.4-10.2); Carbon Dioxide 27 mmol/L (22-32); Chloride 105 mmol/L (98-107); Estimated Glomerular Filt Rate > 60 mL/min (>60); Globulin 2.3 g/dL (1.7-4.1); Glucose 76 mg/dL (70-99); HEMOLYSIS < 15 (0-50); Phosphorous 3.8 mg/dL (2.5-4.5); Potassium 4.3 mmol/L (3.4-5.1); Sodium 139 mmol/L (137-145); Total Protein 6.6 g/dL (6.3-8.2)
[2025-05-01 15:42] LABS: INR 2.8 (0.9-1.3); Prothrombin Time 31.1 SECONDS (9.4-12.5)
== END ==
PROVIDERS: Pharmacist; PCP Family Medicine; Referring Provider Internal Medicine Hematology & Oncology; Visit Provider Internal Medicine Hematology & Oncology
DX: D45 Polycythemia vera (principal); I81 Portal vein thrombosis; Z15.89 Genetic susceptibility to other disease
CPT/HCPCS: 36415; 80069; 80076; 83615; 85025; 85610

== ENCOUNTER → 2025-07-15 11:07 | Outpatient (CLI) | payer OTHER, SELFPAY ==
[2025-07-15 12:35] LABS: Add Manual Diff / Slide Review NO; Hematocrit 44.3 % (36-46); Hemoglobin 15.2 g/dL (12.0-16.0); Lymphocytes Absolute Auto 1500 /uL (1100-4500); Mean Corpuscular HGB Conc 34.3 % (30-36); Mean Corpuscular Hemoglobin 39.0 PG (26-34); Mean Corpuscular Volume 113.5 fL (80-100); Platelet Count 435 X10^3/uL (150-400)
[2025-07-15 12:41] LABS: INR 2.4 (0.9-1.3); Prothrombin Time 26.3 SECONDS (9.4-12.5)
[2025-07-15 12:47] LABS: Alanine Aminotransferase 69 IU/L (<35); Albumin 4.6 g/dL (3.5-5.0); Albumin Globulin Ratio 1.9 (1.0-2.8); Alkaline Phosphatase 136 U/L (38-126); Globulin 2.4 g/dL (1.7-4.1); HEMOLYSIS < 15 (0-50); Total Protein 7.0 g/dL (6.3-8.2)
[2025-07-15 13:35] LABS: Macrocytosis 2+
[2025-07-16 18:03] LABS: Blood Urea Nitrogen 14 mg/dL (7-17); Calcium 10.0 mg/dL (8.4-10.2); Carbon Dioxide 25 mmol/L (22-32); Chloride 106 mmol/L (98-107); Estimated Glomerular Filt Rate > 60 mL/min (>60); Glucose 126 mg/dL (70-99); Phosphorous 3.7 mg/dL (2.5-4.5); Potassium 4.2 mmol/L (3.4-5.1); Sodium 138 mmol/L (137-145)
== END ==
PROVIDERS: PCP Family Medicine; Referring Provider Pharmacist; Visit Provider Pharmacist
DX: D45 Polycythemia vera (principal); I81 Portal vein thrombosis; Z15.89 Genetic susceptibility to other disease
CPT/HCPCS: 36415; 80069; 80076; 83615; 85025; 85610